=== PATIENT | female | born 1955 | race Caucasian/White ===

== ENCOUNTER 2017-12-02 15:03 | Emergency (ER) | payer OTHER ==
[~2017-12-02] VITALS: Ht 167.6 cm; Wt 66.6 kg
[2017-12-02 15:19] VITALS: BP 193/91; PULSE 102; RESP 16; TEMP 98.5; O2SAT 99
[2017-12-02 15:52] VITALS: BP 191/97; PULSE 99; RESP 18; O2SAT 97
[2017-12-02] MEDS ORDERED: SIMV20TA PO (16:01)
[2017-12-02] MEDS ORDERED: LEVO125T4 PO (16:01)
[2017-12-02] MEDS ORDERED: ASPI81TA23 PO (16:01)
[2017-12-02] MEDS ORDERED: LISI20TA PO (16:01)
[2017-12-02] MEDS ORDERED: LORA2TAB7 PO (16:01)
--- NOTE | 2017-12-02 16:08 | PD ---
HPI Chief Complaint: Cardiac Complaint Time Seen by Provider: 16:07 Travel History International Travel<30 days: No Contact w/Intl Traveler<30days: No Traveled to known affect area: No History of Present Illness HPI 61-year-old female came to the emergency room with history of paroxysmal palpitations for past 2-3 days. Patient says that her heart start to race and she almost feels like she is having a panic attack. Currently she says it has gone and she feels okay but the last episode was just prior to coming to the emergency room. Patient is a smoker. Also denies nicotine lozenges in an attempt to quit smoking. She has hypothyroidism and is taking Synthroid. Her last thyroid level was checked a month ago and she said everything was fine. No history of chest pain. Vital signs were stable. Patient says her blood pressure was very high at home as well. [facility]LY [facility] Past Medical History Narrative Medical List of her past medical, surgical, social and family history reviewed from the nursing note. Anxiety: Yes High Cholesterol: Yes Diminished Hearing: No Hypertension: Yes Immunizations Current: Yes Thyroid Disease: Yes Tetanus Vaccination: < 5 Years Influenza Vaccination: No ?: Not Menopausal: Yes Past Surgical History Hysterectomy: Yes Other Surgery: Yes (RT ARM BREAST CYST) Social History Alcohol Use: No Tobacco Use: No Substance Use: Yes (POT) Allergies-Medications (Allergen,Severity, Reaction): Coded Allergies: morphine (Verified Allergy, Severe, HIVES/RASH, 12/02/17) Comments List of her allergies reviewed from the nursing note. Reported Meds & Prescriptions Reported Meds & Active Scripts Active Methimazole 5 Mg Tab 5 Mg PO TID Reported Lorazepam 2 Mg Tab 2 Mg PO DIRECTED PRN Aspirin EC (Aspirin) 81 Mg Tabdr 81 Mg PO DAILY Levothyroxine (Levothyroxine Sodium) 125 Mcg Tab 125 Mcg PO DAILY Lisinopril-Hctz 20-12.5 Mg Tab 1 Tab PO DAILY Simvastatin 20 Mg Tab 20 Mg PO DAILY Narrative Medication List of home medications reviewed from the nursing note. Review of Systems Except as stated in HPI: all other systems reviewed are Neg Cardiovascular: Positive: Palpitations Physical Exam Narrative GENERAL: Awake, alert, anxious, no obvious distress SKIN: Focused skin assessment warm/dry. HEAD: Atraumatic. Normocephalic. EYES: Pupils equal and round. No scleral icterus. No injection or drainage. ENT: No nasal bleeding or discharge. Mucous membranes pink and moist. NECK: Trachea midline. No JVD. CARDIOVASCULAR: Regular rate and rhythm. No murmur appreciated. RESPIRATORY: No accessory muscle use. Clear to auscultation. Breath sounds equal bilaterally. GASTROINTESTINAL: Abdomen soft, non-tender, nondistended. Hepatic and splenic margins not palpable. MUSCULOSKELETAL: No obvious deformities. No clubbing. No cyanosis. No edema. NEUROLOGICAL: Awake and alert. No obvious cranial nerve deficits. Motor grossly within normal limits. Normal speech. PSYCHIATRIC: Appropriate mood and affect; insight and judgment normal. Data Data Last Documented VS Vital Signs Date Time Temp Pulse Resp B/P (MAP) Pulse Ox O2 Delivery O2 Flow Rate FiO2 12/02/17 18:01 12/02/17 17:26 92 18 96 Room Air 12/02/17 15:19 98.5 Orders Orders Electrocardiogram (12/02/17 16:13) Basic Metabolic Panel (Bmp) (12/02/17 16:13) Complete Blood Count With Diff (12/02/17 16:13) Magnesium (Mg) (12/02/17 16:13) Prothrombin Time / Inr (Pt) (12/02/17 16:13) Troponin I (12/02/17 16:13) Chest, Single Ap (12/02/17 16:13) Ecg Monitoring (12/02/17 16:13) Bilateral Bp Monitoring (12/02/17 16:13) Iv Access Insert/Monitor (12/02/17 16:13) Oximetry (12/02/17 16:13) Oxygen Administration (12/02/17 16:13) Sodium Chloride 0.9% Flush (Ns Flush) (12/02/17 16:15) Sodium Chlorid 0.9% 500 Ml Inj (Ns 500 M (12/02/17 16:15) Thyroid Stimulating Hormone (12/02/17 16:13) Propranolol (Inderal) (12/02/17 17:15) Methimazole (Tapazole) (12/02/17 17:15) Methimazole (Tapazole) (12/02/17 17:30) Free T3 (12/02/17 17:20) Free Thyroxine (T4) (12/02/17 17:20) Ed Discharge Order (12/02/17 17:32) Labs Laboratory Tests Test 12/02/17 16:20 White Blood Count 6.8 TH/MM3 Red Blood Count 5.42 MIL/MM3 Hemoglobin 15.6 GM/DL Hematocrit 47.8 % Mean Corpuscular Volume 88.2 FL Mean Corpuscular Hemoglobin 28.7 PG Mean Corpuscular Hemoglobin Concent 32.6 % Red Cell Distribution Width 12.0 % Platelet Count 217 TH/MM3 Mean Platelet Volume 7.0 FL Neutrophils (%) (Auto) 60.5 % Lymphocytes (%) (Auto) 27.1 % Monocytes (%) (Auto) 9.6 % Eosinophils (%) (Auto) 2.3 % Basophils (%) (Auto) 0.5 % Neutrophils # (Auto) 4.1 TH/MM3 Lymphocytes # (Auto) 1.8 TH/MM3 Monocytes # (Auto) 0.7 TH/MM3 Eosinophils # (Auto) 0.2 TH/MM3 Basophils # (Auto) 0.0 TH/MM3 CBC Comment DIFF FINAL Differential Comment Prothrombin Time 10.6 SEC Prothromb Time International Ratio 1.0 RATIO Blood Urea Nitrogen 15 MG/DL Creatinine 0.72 MG/DL Random Glucose 150 MG/DL Calcium Level 9.4 MG/DL Magnesium Level 2.3 MG/DL Sodium Level 138 MEQ/L Potassium Level 3.6 MEQ/L Chloride Level 106 MEQ/L Carbon Dioxide Level 24.4 MEQ/L Anion Gap 8 MEQ/L Estimat Glomerular Filtration Rate 82 ML/MIN Troponin I LESS THAN 0.02 NG/ML Free Thyroxine 1.24 NG/DL Free Triiodothyronine (T3) pg/dL 2.43 PG/ML Thyroid Stimulating Hormone 3rd Gen 0.149 uIU/ML MDM Medical Decision Making Medical Screen Exam Complete: Yes Emergency Medical Condition: Yes Medical Record Reviewed: Yes Interpretation(s) Twelve-lead EKG was reviewed by me. Normal sinus rhythm, left axis deviation, nonspecific ST-T wave changes. Heart rate of 79 bpm. Differential Diagnosis Electrolyte abnormality, hyperthyroidism, ACS Narrative Course 5:35 PM blood test results are back and her TSH is abnormally low. This would explain her palpitations given the fact that she is hyperthyroid. I've given her dose of methimazole and propranolol. She'll go home with a prescription for methimazole and instructions. Procedures EKG Prior to Arrival: No Diagnosis Primary Impression: Palpitations Additional Impression: Hyperthyroidism Referrals: Primary Care Physician 3 days Additional Instructions: Please return to the ER if condition worsens or any other new concerns. Otherwise follow up with her primary care in next 3-4 days. A repeat blood test for thyroid patient be done within a week. Stop taking Synthroid. He will need to adjust the dose of the medication based on the repeat blood test result. Your primary care needs to order an ultrasound of your thyroid gland as well. Med/Other Pt SpecificInfo: Prescription(s) given, Med Stopped (Levithyroxine ) Scripts Methimazole (Methimazole) 5 Mg Tab 5 MG PO TID for Thyroid, #15 TAB 0 Refills Prov: Elsie Garcia MD 12/02/17 Disposition: 01 DISCHARGE HOME Condition: Stable Elsie Garcia MD Dec 02, 2017 16:08
[2017-12-02] MEDS ORDERED: SODIUM CHLORID 0.9% 500 ML INJ 500 ML IV ONE (16:15)
[2017-12-02] MEDS ORDERED: SODIUM CHLORIDE 0.9% FLUSH 10 ML FLUSH IVF PRN (16:15)
--- NOTE | 2017-12-02 16:42 | RADRPT ---
EXAM DATE/TIME: 12/02/2017 16:30 [place] COMPARISON: No previous studies available for comparison. INDICATIONS : Chest discomfort and headache. MEDICAL HISTORY : Hypertension. SURGICAL HISTORY : None. ENCOUNTER: Initial ACUITY: 3 days PAIN SCORE: 2/10 LOCATION: Bilateral chest FINDINGS: A single view of the chest demonstrates the lungs to be symmetrically aerated without evidence of mas s, infiltrate or effusion. The cardiomediastinal contours are unremarkable. Osseous structures are intact. CONCLUSION: No acute disease. Compa Andino MD FACR on December 02, 2017 at 16:40 Board Certified Radiologist. This report was verified electronically.
[2017-12-02 16:44] LABS: CHLORIDE 106 MEQ/L (98-107); SODIUM (NA) 138 MEQ/L (136-145)
[2017-12-02 16:46] VITALS: RESP 16; O2SAT 97
[2017-12-02 16:47] VITALS: BP_SYST 139; BP_SYST 144; BP_DIAS 68; BP_DIAS 71
[2017-12-02 16:47] LABS: BICARBONATE 24.4 MEQ/L (21.0-32.0); CALCIUM 9.4 MG/DL (8.5-10.1); GLUCOSE,RANDOM 150 MG/DL (74-106); MAGNESIUM 2.3 MG/DL (1.5-2.5)
[2017-12-02 16:48] LABS: BLOOD UREA NITROGEN 15 MG/DL (7-18); PROTHROMBIN TIME - PATIENT 10.6 SEC (9.8-11.6)
[2017-12-02 16:51] LABS: CREATININE 0.72 MG/DL (0.50-1.00); GLOMERULAR FILTRATION RATE 82 ML/MIN (>89)
[2017-12-02 16:55] LABS: AUTOMATED NEUTROPHIL # 4.1 TH/MM3 (1.8-7.7); BASOPHIL % 0.5 % (0.0-2.0); EOSINOPHIL # 0.2 TH/MM3 (0-0.4); EOSINOPHIL % 2.3 % (0.0-4.0); HEMATOCRIT 47.8 % (35.0-46.0); HEMOGLOBIN 15.6 GM/DL (11.6-15.3); LYMPH % 27.1 % (9.0-44.0); LYMPHOCYTE # 1.8 TH/MM3 (1.0-4.8); MEAN CELL VOLUME 88.2 FL (80.0-100.0); MEAN CORPUSCULAR HEMOGLOBIN 28.7 PG (27.0-34.0); MEAN CORPUSCULAR HGB CONC 32.6 % (32.0-36.0); MONO % 9.6 % (0.0-8.0); MONOCYTE # 0.7 TH/MM3 (0-0.9); NEUT % 60.5 % (16.0-70.0); PLATELET COUNT 217 TH/MM3 (150-450); RED BLOOD COUNT 5.42 MIL/MM3 (4.00-5.30); WHITE BLOOD COUNT 6.8 TH/MM3 (4.0-11.0)
[2017-12-02 16:56] LABS: TROPONIN I LESS THAN 0.02 NG/ML (0.02-0.05)
[2017-12-02] MEDS ORDERED: METHIMAZOLE 10 MG TAB PO ONE (17:15)
[2017-12-02] MEDS ORDERED: PROPRANOLOL HCL 20 MG TAB PO ONE (17:15)
[2017-12-02] MEDS ORDERED: METH5TAB4 PO (17:16)
[2017-12-02 17:26] VITALS: BP 139/68; PULSE 92; RESP 18; O2SAT 96
[2017-12-02] MEDS ORDERED: METHIMAZOLE 5 MG TAB PO ONE (17:30)
[2017-12-02 20:40] LABS: FREE T3 2.43 PG/ML (2.18-3.98); FREE T4 1.24 NG/DL (0.76-1.46)
--- NOTE | 2017-12-03 13:47 | EKG ---
Date Performed: 12/02/2017 Time Performed: 16:18:18 PTAGE: 61 years EKG: Sinus rhythm BORDERLINE LEFT AXIS DEVIATION BORDERLINE ECG NO PREVIOUS TRACING DOCTOR: Jevon Horner Interpretating Date/Time 12/03/2017 13:43:53
== END 2017-12-02 18:02 | disposition home or self-care (01) ==
LOC: PHED 15:03
DX: R00.2 Palpitations (principal); E05.90 Thyrotoxicosis, unspecified without thyrotoxic crisis or storm; I10 Essential (primary) hypertension; E78.00 Pure hypercholesterolemia, unspecified; E03.9 Hypothyroidism, unspecified; F41.9 Anxiety disorder, unspecified; R94.31 Abnormal electrocardiogram [ECG] [EKG]; F17.200 Nicotine dependence, unspecified, uncomplicated; Z88.5 Allergy status to narcotic agent; Z79.82 Long term (current) use of aspirin; Z79.899 Other long term (current) drug therapy
CPT/HCPCS: 71045; 80048; 83735; 84439; 84443; 84481; 84484; 85025; 85610; 93005; 96360; 99285; J7040

== ENCOUNTER 2018-04-03 08:08 | Inpatient (IN) | payer OTHER ==
[2018-04-03] VITALS (11 sets, daily range): BP systolic 102–152; BP diastolic 66–82; PULSE 63–128; RESP 16–18; TEMP 98–98.5; O2SAT 95–98
[~2018-04-03] VITALS: Ht 167.6 cm; Wt 69.7 kg
[~2018-04-03 08:08] MED LIST: ASPI81TA23 PO; LEVO125T4 PO; LISI20TA PO; LORA2TAB7 PO; METH5TAB4 PO; SIMV20TA PO
[2018-04-03] MEDS ORDERED: VITA2000 PO (08:30)
[2018-04-03] MEDS ORDERED: MULTTAB67 PO (08:30)
[2018-04-03] MEDS ORDERED: LEVO112T2 PO (08:30)
--- NOTE | 2018-04-03 08:47 | PD ---
HPI Chief Complaint: General Weakness Time Seen by Provider: 08:36 Travel History International Travel<30 days: No Contact w/Intl Traveler<30days: No Traveled to known affect area: No History of Present Illness HPI This 62-year-old female is complaining of not feeling well. She says she has not felt well for several months. She was here in November. She has a history of hypothyroidism and had been on thyroid replacement for many years. When she was here in November she was found to have a low TSH. She was told to stop her Synthroid and was started on methimazole. She says she has not had any energy. She has been feeling tired. She denies chest pain or shortness of breath. She does have a very strong family history of heart disease. Both her mother and sister have of heart disease. She stopped smoking in November [facility] Past Medical History Anxiety: Yes High Cholesterol: Yes Diminished Hearing: No Hypertension: Yes Immunizations Current: Yes Thyroid Disease: Yes (HYPO) Influenza Vaccination: No Menopausal: Yes Past Surgical History Hysterectomy: Yes Other Surgery: Yes (RT ARM BREAST CYST) Social History Alcohol Use: No Tobacco Use: No Substance Use: Yes (POT) Allergies-Medications (Allergen,Severity, Reaction): Coded Allergies: morphine (Verified Allergy, Severe, HIVES/RASH, 04/03/18) Reported Meds & Prescriptions Reported Meds & Active Scripts Active Reported Vitamin D3 (Cholecalciferol) 2,000 Unit Cap 2,000 Units PO DAILY Multiple Vitamin 1 Tab 1 Tab PO DAILY Levothyroxine (Levothyroxine Sodium) 112 Mcg Tab 112 Mcg PO DAILY Lorazepam 2 Mg Tab 2 Mg PO DIRECTED PRN Aspirin EC (Aspirin) 81 Mg Tabdr 81 Mg PO DAILY Lisinopril-Hctz 20-12.5 Mg Tab 1 Tab PO DAILY Simvastatin 20 Mg Tab 20 Mg PO DAILY Review of Systems General / Constitutional: No: Fever, Chills HENT: Positive: Lightheadedness, No: Headaches Cardiovascular: Positive: Palpitations, No: Chest Pain or Discomfort Respiratory: No: Cough, Shortness of Breath Gastrointestinal: No: Vomiting, Diarrhea Genitourinary: No: Urgency, Frequency Musculoskeletal: No: Myalgias, Arthralgias Skin: No Rash, No Itching Neurologic: Positive: Weakness, No: Syncope Psychiatric: No: Anxiety, Depression Endocrine: No: Heat Intolerance, Cold Intolerance Hematologic/Lymphatic: No: Easy Bruising Physical Exam Narrative GENERAL: Well-developed female SKIN: Focused skin assessment warm/dry. HEAD: Atraumatic. Normocephalic. EYES: Pupils equal and round. No scleral icterus. No injection or drainage. ENT: No nasal bleeding or discharge. Mucous membranes pink and moist. NECK: Trachea midline. No JVD. Thyroid is not palpable CARDIOVASCULAR: Regular rate and rhythm. No murmur appreciated. RESPIRATORY: No accessory muscle use. Clear to auscultation. Breath sounds equal bilaterally. GASTROINTESTINAL: Abdomen soft, non-tender, nondistended. Hepatic and splenic margins not palpable. MUSCULOSKELETAL: No obvious deformities. No clubbing. No cyanosis. No edema. NEUROLOGICAL: Awake and alert. No obvious cranial nerve deficits. Motor grossly within normal limits. Normal speech. PSYCHIATRIC: Appropriate mood and affect; insight and judgment normal. Data Data Last Documented VS Vital Signs Date Time Temp Pulse Resp B/P (MAP) Pulse Ox O2 Delivery O2 Flow Rate FiO2 04/03/18 10:30 82 16 119/66 (83) 98 Room Air 04/03/18 08:16 98.4 Orders Orders Electrocardiogram (04/03/18 08:45) Complete Blood Count With Diff (04/03/18 08:45) Comprehensive Metabolic Panel (04/03/18 08:45) Thyroid Stimulating Hormone (04/03/18 08:45) Urinalysis - C+S If Indicated (04/03/18 08:51) Creatine Kinase (Cpk) (04/03/18 09:17) Ckmb (Isoenzyme) Profile (04/03/18 09:17) Troponin I (04/03/18 09:17) B-Type Natriuretic Peptide (04/03/18 09:17) Magnesium (Mg) (04/03/18 09:17) Chest, Single Ap (04/03/18 09:17) CKMB (04/03/18 09:35) CKMB% (04/03/18 09:35) Heparin Inj (Heparin Inj) (04/03/18 11:15) Heparin Inj (Heparin Inj) (04/03/18 17:15) Heparin Inj (Heparin Inj) (04/03/18 17:15) Heparin-D5w 25,000 U/250 Ml (Heparin-D5w (04/03/18 11:15) Act Partial Throm Time (Ptt) (04/03/18 11:02) Prothrombin Time / Inr (Pt) (04/03/18 11:02) Cbc No Diff, Includes Plts (04/03/18 11:02) Cbc No Diff, Includes Plts (04/06/18 06:00) Act Partial Throm Time (Ptt) (04/03/18 18:02) Occult Blood (Hemoccult) Stool (04/03/18 11:02) Labs Laboratory Tests Test 04/03/18 08:50 04/03/18 08:55 04/03/18 09:35 Urine Collection Type VOIDED Urine Color YELLOW Urine Turbidity CLEAR Urine pH 5.0 Urine Specific [place] 1.025 Urine Protein TRACE mg/dL Urine Glucose (UA) NEG mg/dL Urine Ketones NEG mg/dL Urine Occult Blood LARGE Urine Nitrite NEG Urine Bilirubin NEG Urine Urobilinogen 0.2 MG/DL Urine Leukocyte Esterase NEG Urine RBC 4-9 /hpf Urine WBC 0-2 /hpf Urine Squamous Epithelial Cells 0-3 /hpf Urine Mucus MANY /lpf Microscopic Urinalysis Comment CULT NOT INDICATED White Blood Count 7.0 TH/MM3 Red Blood Count 4.38 MIL/MM3 Hemoglobin 13.5 GM/DL Hematocrit 40.1 % Mean Corpuscular Volume 91.5 FL Mean Corpuscular Hemoglobin 30.8 PG Mean Corpuscular Hemoglobin Concent 33.7 % Red Cell Distribution Width 13.5 % Platelet Count 229 TH/MM3 Mean Platelet Volume 5.9 FL Neutrophils (%) (Auto) 68.9 % Lymphocytes (%) (Auto) 22.2 % Monocytes (%) (Auto) 7.1 % Eosinophils (%) (Auto) 0.7 % Basophils (%) (Auto) 1.1 % Neutrophils # (Auto) 4.9 TH/MM3 Lymphocytes # (Auto) 1.5 TH/MM3 Monocytes # (Auto) 0.5 TH/MM3 Eosinophils # (Auto) 0.0 TH/MM3 Basophils # (Auto) 0.1 TH/MM3 CBC Comment DIFF FINAL Differential Comment Blood Urea Nitrogen 18 MG/DL Creatinine 1.00 MG/DL Random Glucose 128 MG/DL Total Protein 8.3 GM/DL Albumin 4.4 GM/DL Calcium Level 9.5 MG/DL Alkaline Phosphatase 67 U/L Aspartate Amino Transf (AST/SGOT) 34 U/L Alanine Aminotransferase (ALT/SGPT) 44 U/L Total Bilirubin 0.5 MG/DL Sodium Level 140 MEQ/L Potassium Level 3.6 MEQ/L Chloride Level 106 MEQ/L Carbon Dioxide Level 25.0 MEQ/L Anion Gap 9 MEQ/L Estimat Glomerular Filtration Rate 56 ML/MIN Thyroid Stimulating Hormone 3rd Gen 6.960 uIU/ML Magnesium Level 2.3 MG/DL Total Creatine Kinase 252 U/L Creatine Kinase MB 7.8 NG/ML Creatine Kinase MB % 3.1 % Troponin I 0.06 NG/ML B-Type Natriuretic Peptide 239 PG/ML MDM Medical Decision Making Medical Screen Exam Complete: Yes Emergency Medical Condition: Yes Medical Record Reviewed: Yes Differential Diagnosis Differential includes hyperthyroidism, hypothyroidism, electrolyte imbalance Narrative Course EKG shows a sinus rhythm with deeply inverted T waves across the precordium. The T waves are inverted in all leads except for R in V1. Her troponin is elevated at 0.06. There is not any chest pain but the troponin and EKG findings are suspicious for ischemia. I have discussed the case with Dr. Ledbetter who asked that we initiate heparin and transfer the patient to the main hospital Diagnosis Primary Impression: Myocardial ischemia Admitting Information Admitting Physician Requests: Admit Jacky Olmedo MD April 03, 2018 08:47
[2018-04-03 09:07] LABS: AUTOMATED NEUTROPHIL # 4.9 TH/MM3 (1.8-7.7); BASOPHIL # 0.1 TH/MM3 (0-0.2); BASOPHIL % 1.1 % (0.0-2.0); EOSINOPHIL % 0.7 % (0.0-4.0); HEMATOCRIT 40.1 % (35.0-46.0); HEMOGLOBIN 13.5 GM/DL (11.6-15.3); LYMPH % 22.2 % (9.0-44.0); LYMPHOCYTE # 1.5 TH/MM3 (1.0-4.8); MEAN CELL VOLUME 91.5 FL (80.0-100.0); MEAN CORPUSCULAR HEMOGLOBIN 30.8 PG (27.0-34.0); MEAN CORPUSCULAR HGB CONC 33.7 % (32.0-36.0); MEAN PLATELET VOLUME 5.9 FL (7.0-11.0); MONO % 7.1 % (0.0-8.0); MONOCYTE # 0.5 TH/MM3 (0-0.9); NEUT % 68.9 % (16.0-70.0); PLATELET COUNT 229 TH/MM3 (150-450); RED BLOOD COUNT 4.38 MIL/MM3 (4.00-5.30); RED CELL DISTRIBUTION WIDTH 13.5 % (11.6-17.2)
[2018-04-03 09:08] LABS: BILIRUBIN, URINE NEG (NEG); BLOOD, URINE LARGE (NEG); GLUCOSE,URINE NEG (NEG); KETONE, URINE NEG (NEG); NITRITE,URINE NEG (NEG); URINE COLOR YELLOW (YELLW/STRAW); URINE LEUKOCYTE ESTERASE NEG (NEG)
--- NOTE | 2018-04-03 09:44 | RADRPT ---
EXAM DATE: 04/03/2018 9:41 AM EDT AGE/SEX: 62 years / Female INDICATIONS: Palpitations. CLINICAL DATA: This is the patient's initial encounter. Patient reports that signs and symptoms have been present for 1 day and indicates a pain score of 0/10. MEDICAL/SURGICAL HISTORY: Hypertension. None. COMPARISON: [facility], CHEST SINGLE AP, 12/02/2017. . FINDINGS: A single AP view of the chest demonstrates the lungs to be symmetrically aerated without evidence of mass, infiltrate or effusion. The cardiomediastinal contours are unremarkable. Osseous structures a re intact. CONCLUSION: No acute cardiopulmonary disease Electronically signed by: Maulik Witt MD 04/03/2018 9:43 AM EDT
[2018-04-03 09:53] LABS: MUCUS URINE MANY /lpf (OCC)
[2018-04-03 09:54] LABS: WBC, URINE 0-2 /hpf (0-5)
[2018-04-03 09:55] LABS: SQUAMOUS EPITHELIAL CELL URINE 0-3 /hpf (0-5)
[2018-04-03 09:56] LABS: ALBUMIN 4.4 GM/DL (3.4-5.0); BLOOD UREA NITROGEN 18 MG/DL (7-18); GLUCOSE,RANDOM 128 MG/DL (74-106)
[2018-04-03 09:58] LABS: CALCIUM 9.5 MG/DL (8.5-10.1)
[2018-04-03 09:59] LABS: ALT (GPT) 44 U/L (10-53); AST (GOT) 34 U/L (15-37); GLOMERULAR FILTRATION RATE 56 ML/MIN (>89)
[2018-04-03 10:00] LABS: CHLORIDE 106 MEQ/L (98-107); SODIUM (NA) 140 MEQ/L (136-145); TOTAL BILIRUBIN ADULT 0.5 MG/DL (0.2-1.0)
[2018-04-03 10:01] LABS: TOTAL PROTEIN 8.3 GM/DL (6.4-8.2)
[2018-04-03 10:02] LABS: ALKALINE PHOSPHATASE 67 U/L (45-117)
[2018-04-03 10:18] LABS: MAGNESIUM 2.3 MG/DL (1.5-2.5)
[2018-04-03 10:26] LABS: TROPONIN I 0.06 NG/ML (0.02-0.05)
[2018-04-03] MEDS ORDERED: HEPARIN-D5W 25,000 U/250 ML 250 ML IV PRN (11:15)
[2018-04-03] MEDS ORDERED: HEPARIN SODIUM - IV 10,000 UNITS/10 ML VIAL IV ONE (11:15)
[2018-04-03] MEDS ORDERED: ACETAMINOPHEN 325 MG TAB PO PRN ×2 (11:15)
[2018-04-03] MEDS ORDERED: SODIUM CHLORIDE 0.9% FLUSH 10 ML FLUSH IV FLUSH PRN (11:15)
[2018-04-03] MEDS ORDERED: ONDANSETRON HCL 4 MG/2 ML VIAL IVP PRN (11:15)
[2018-04-03] MEDS ORDERED: NITROGLYCERIN 0.4 MG SL 25 TABS/BTL SL PRN (11:15)
[2018-04-03] MEDS ORDERED: NALOXONE HCL 0.4 MG/ML AMP IV PUSH PRN (11:15)
[2018-04-03] MEDS ORDERED: RESP: ALBUTEROL 2.5 MG/IPRATROPIUM 0.5 MG NEB (PRN) NEB (11:15)
[2018-04-03] MEDS ORDERED: MAGNESIUM HYDROXIDE SUSP 30 ML CUP PO PRN (11:15)
--- NOTE | 2018-04-03 11:16 | EKG ---
Date Performed: 04/03/2018 Time Performed: 09:12:45 PTAGE: 62 years EKG: Sinus rhythm WITH SINUS ARRHYTHMIA LEFT AXIS DEVIATION INCOMPLETE RIGHT BUNDLE BRANCH BLOCK ST/T-WAVE ABNORMALITY , CONSIDER ANTEROLATERAL AND INFERIOR ISCHEMIA ABNORMAL ECG PREVIOUS TRACING : 12/02/2017 16.18 Compared to previous tracing, current abnormal EKG has repl aced normal EKG. DOCTOR: Evelio Villasenor Interpretating Date/Time 04/03/2018 11:14:38
[2018-04-03 11:26] LABS: INTERNATIONAL NORMALIZED RATIO 1.1 RATIO; PROTHROMBIN TIME - PATIENT 10.8 SEC (9.8-11.6)
--- NOTE | 2018-04-03 11:38 | HHI.HP ---
[facility] Nader Barillas MD Admission Diagnosis MYOCARDIAL ISCHEMIA Diagnoses: (1) Myocardial ischemia Diagnosis: Principal Chief Complaint: Fatigue Travel History International Travel<30 Days: No Contact w/Intl Traveler <30 Da: No Traveled to Known Affected Are: No History of Present Illness Written by Srikanth Trevizo, acting as scribe for Dr. Wang on 04/03/18 at 11: 38. 62-year-old female with known history of hypertension, hyperlipidemia, hypothyroidism, anxiety who presented to hospital because a few day history of lethargy, nausea, palpitations. Patient states that she normal state of health until approximately 3 days ago when she just started feeling very fatigued, had no energy. She related to her hypothyroidism. States that over the last few months she has been undergoing management for hypothyroidism and told that she had hyperthyroidism and her primary doctor said that she now again has hypothyroidism. However she has been experiencing some nausea over the last 3 days as well as palpitations. Patient decided come to the emergency department for evaluation. Upon workup patient was found to have significantly abnormal EKGs showing myocardial ischemia as well as mildly elevated cardiac enzymes. ER physician did contact cocoa bean roaster who recommended admission to [facility] for further evaluation and management. Presently the patient is sitting eating fine. She denies any chest pain, vomiting, shortness of breath, dyspnea, lightheadedness, dizziness. Review of Systems Constitutional: COMPLAINS OF: Fatigue Cardiovascular: COMPLAINS OF: Palpitations Except as stated in HPI: all other systems reviewed are Neg Past Family Social History Past Medical History Hypertension Hyperlipidemia Hypothyroidism Anxiety Past Surgical History Hysterectomy Multiple bilateral breast biopsies and cyst removals Right forearm surgery from arm going through plate glass window Reported Medications Reported Meds & Active Scripts Active Reported Vitamin D3 (Cholecalciferol) 2,000 Unit Cap 2,000 Units PO DAILY Multiple Vitamin 1 Tab 1 Tab PO DAILY Levothyroxine (Levothyroxine Sodium) 112 Mcg Tab 112 Mcg PO DAILY Lorazepam 2 Mg Tab 2 Mg PO DIRECTED PRN Aspirin EC (Aspirin) 81 Mg Tabdr 81 Mg PO DAILY Lisinopril-Hctz 20-12.5 Mg Tab 1 Tab PO DAILY Simvastatin 20 Mg Tab 20 Mg PO DAILY Allergies: Coded Allergies: morphine (Verified Allergy, Severe, HIVES/RASH, 04/03/18) Family History Family history reviewed and significant for heart disease. Mother at age 63 from myocardial infarction, she had her first bypass at age 50. Sister had her heart attack at age 52. Father at age 88 from colon cancer Social History Patient quit smoking in November, prior to that she smoked 1 pack of cigarettes a day since she was 16 years old. Denies any alcohol or illicit drugs Physical Exam Vital Signs Vital Signs Date Time Temp Pulse Resp B/P (MAP) Pulse Ox O2 Delivery O2 Flow Rate FiO2 04/03/18 10:30 82 16 119/66 (83) 98 Room Air 04/03/18 08:16 98.4 128 16 152/73 (99) 98 Physical Exam GENERAL: Well-developed, well-nourished, in no acute distress. alert and orientated HEENT: Head is normocephalic without any lesions or masses noted. Facial features are symmetric. Eyes: Pupils equal round reactive to light. Extraocular muscles are intact. Conjunctivae were clear. Oropharyngeal: Pharynx without any erythema edema. Tongue is midline without deviation. Buccal mucosa is moist without any masses or lesions NECK: Supple without any masses. Trachea midline no deviation. No JVD, no bruits are appreciated CARDIAC: Regular rhythm, regular rate. S1/S2 are heard. No murmurs gallops or rubs. LUNGS: Clear to auscultation bilaterally. No wheeze, rhonchi or rales. No use of accessory muscles on inspiration or expiration. ABDOMEN: Soft, nontender. Nondistended. Bowel sounds heard in all 4 quadrants. No organomegaly or masses. Negative rebound, negative guarding EXTREMITIES: No edema, pulses are equal bilaterally. No cyanosis or clubbing NEUROLOGY: Mood and affect appear appropriate. Cranial nerves II through XII grossly intact. Muscle strength 5/5 in upper and lower extremities bilaterally. Deep tendon reflexes are 2+ in upper and lower extremities bilaterally. Laboratory Laboratory Tests Test 04/03/18 08:50 04/03/18 08:55 04/03/18 09:35 Urine Collection Type VOIDED Urine Color YELLOW Urine Turbidity CLEAR Urine pH 5.0 Urine Specific [employer] 1.025 Urine Protein TRACE Urine Glucose (UA) NEG Urine Ketones NEG Urine Occult Blood LARGE Urine Nitrite NEG Urine Bilirubin NEG Urine Urobilinogen 0.2 Urine Leukocyte Esterase NEG Urine RBC 4-9 Urine WBC 0-2 Urine Squamous Epithelial Cells 0-3 Urine Mucus MANY Microscopic Urinalysis Comment CULT NOT INDICATED White Blood Count 7.0 Red Blood Count 4.38 Hemoglobin 13.5 Hematocrit 40.1 Mean Corpuscular Volume 91.5 Mean Corpuscular Hemoglobin 30.8 Mean Corpuscular Hemoglobin Concent 33.7 Red Cell Distribution Width 13.5 Platelet Count 229 Mean Platelet Volume 5.9 Neutrophils (%) (Auto) 68.9 Lymphocytes (%) (Auto) 22.2 Monocytes (%) (Auto) 7.1 Eosinophils (%) (Auto) 0.7 Basophils (%) (Auto) 1.1 Neutrophils # (Auto) 4.9 Lymphocytes # (Auto) 1.5 Monocytes # (Auto) 0.5 Eosinophils # (Auto) 0.0 Basophils # (Auto) 0.1 CBC Comment DIFF FINAL Differential Comment Prothrombin Time 10.8 Prothromb Time International Ratio 1.1 Activated Partial Thromboplast Time 25.1 Blood Urea Nitrogen 18 Creatinine 1.00 Random Glucose 128 Total Protein 8.3 Albumin 4.4 Calcium Level 9.5 Alkaline Phosphatase 67 Aspartate Amino Transf (AST/SGOT) 34 Alanine Aminotransferase (ALT/SGPT) 44 Total Bilirubin 0.5 Sodium Level 140 Potassium Level 3.6 Chloride Level 106 Carbon Dioxide Level 25.0 Anion Gap 9 Estimat Glomerular Filtration Rate 56 Thyroid Stimulating Hormone 3rd Gen 6.960 Magnesium Level 2.3 Total Creatine Kinase 252 Creatine Kinase MB 7.8 Creatine Kinase MB % 3.1 Troponin I 0.06 B-Type Natriuretic Peptide 239 Result Diagram: 04/03/18 0855 04/03/18 0855 Imaging Last Impressions Chest X-Ray 04/03/18 0917 Signed Impressions: CONCLUSION: No acute cardiopulmonary disease Caprini VTE Risk Assessment Caprini VTE Risk Assessment: Mod/High Risk (score >= 2) Caprini Risk Assessment Model Point Value = 1 Point Value = 2 Point Value = 3 Point Value = 5 Age 41-60 Minor surgery BMI > 25 kg/m2 Swollen legs Varicose veins or History of unexplained or recurrent spontaneous Oral contraceptives or hormone replacement Sepsis (< 1 month) Serious lung disease, including pneumonia (< 1 month) Abnormal pulmonary function Acute myocardial infarction Congestive heart failure (< 1 month) History of inflammatory bowel disease Medical patient at bed rest Age 61-74 Arthroscopic surgery Major open surgery (> 45 min) Laparoscopic surgery (> 45 min) Malignancy Confined to bed (> 72 hours) Immobilizing plaster cast Central venous access Age >= 75 History of VTE Family history of VTE Factor V Leiden Prothrombin [id number] Lupus anticoagulant Anticardiolipin antibodies Elevated serum homocysteine Heparin-induced thrombocytopenia Other congenital or acquired thrombophilia Stroke (< 1 month) Elective arthroplasty Hip, pelvis, or leg fracture Acute spinal cord injury (< 1 month) Prophylaxis Regimen Total Risk Factor Score Risk Level Prophylaxis Regimen 0-1 Low Early ambulation 2 Moderate Order ONE of the following: *Sequential Compression Device (SCD) *Heparin 5000 units SQ BID 3-4 Higher Order ONE of the following medications: *Heparin 5000 units SQ TID *Enoxaparin/Lovenox 40 mg SQ daily (WT < 150 kg, CrCl > 30 mL/min) *Enoxaparin/Lovenox 30 mg SQ daily (WT < 150 kg, CrCl > 10-29 mL/min) *Enoxaparin/Lovenox 30 mg SQ BID (WT < 150 kg, CrCl > 30 mL/min) AND/OR *Sequential Compression Device (SCD) 5 or more Highest Order ONE of the following medications: *Heparin 5000 units SQ TID (Preferred with Epidurals) *Enoxaparin/Lovenox 40 mg SQ daily (WT < 150 kg, CrCl > 30 mL/min) *Enoxaparin/Lovenox 30 mg SQ daily (WT < 150 kg, CrCl > 10-29 mL/min) *Enoxaparin/Lovenox 30 mg SQ BID (WT < 150 kg, CrCl > 30 mL/min) AND *Sequential Compression Device (SCD) Assessment and Plan Problem List: (1) Myocardial ischemia ICD Code: I25.9 - Chronic ischemic heart disease, unspecified Status: Acute Assessment and Plan Myocardial ischemia -Patient with increased risk factors include age, postmenopausal without exogenous hormones, hypertension, hyperlipidemia -Initial cardiac enzymes were elevated with troponin 0 0.06, continue to trend cardiac enzyme -Initial EKG indicates incomplete right bundle branch block, ST/T-wave abnormalities consider anterolateral and inferior ischemia, continue serial EKGs -ER physician contacted cocoa bean roaster on-call who recommended patient be transferred to [facility] for evaluation and possible catheterization -Cardiology consultation -Patient will continue on aspirin, start low-dose Lopressor, Nitropaste, continue ROMULO inhibitor, continue statin -Patient will be anticoagulated on heparin IV Hypertension, hyperlipidemia -Home medications have been continued Hypothyroidism -Replacement therapy will be continued DVT prevention -Patient be anticoagulated with heparin IV This note was transcribed by jalil Trevizo. I, Dr. Maulik Wang personally performed the history, physical exam, and medical decision making; and confirmed the accuracy of the information in the transcribed note. Authenticated by Dr. Maulik Wang on 04/03/18 at 11:38. Code Status Full code Discussed Condition With Patient, , ED physician Physician Certification 2 Midnight Certification Type: Admission for Inpatient Services Order for Inpatient Services The services are ordered in accordance with Medicare regulations or non- Medicare payer requirements, as applicable. In the case of services not specified as inpatient-only, they are appropriately provided as inpatient services in accordance with the 2-midnight benchmark. Estimated LOS (days): 3 days is the estimated time the patient will need to remain in the hospital, assuming treatment plan goals are met and no additional complications. Post-Hospital Plan: Not yet determined Srikanth Trevizo April 03, 2018 11:38 Maulik Wang MD April 03, 2018 11:39
[2018-04-03] MEDS: METOPROLOL TARTRATE 25 MG TAB PO SCH ×2 (12:04→21:06)
[2018-04-03] MEDS: NITROGLYCERIN 2% OINT 1 GM PACKET TOPICAL SCH ×2 (12:05→18:00)
[2018-04-03 16:42] LABS: TROPONIN I 0.08 NG/ML (0.02-0.05)
[2018-04-03] MEDS ORDERED: HEPARIN SODIUM - IV 10,000 UNITS/10 ML VIAL IV PRN ×2 (17:15)
[2018-04-03] MEDS: SODIUM CHLORIDE 0.9% FLUSH 10 ML FLUSH IV FLUSH SCH (21:08)
[2018-04-03 22:29] LABS: TROPONIN I 0.06 NG/ML (0.02-0.05)
--- NOTE | 2018-04-03 23:30 | MB ---
cc: Anival Ledbetter MD DATE: 04/03/2018 HISTORY OF PRESENT ILLNESS: Veronica is a very pleasant 62-year-old lady who presents to the ER with chief complaint of severe weakness and fatigue. Otherwise, denies any fevers, chills, cough, GI or bleeding, PND, orthopnea, syncope, dizziness or chest pain. She has been having difficulty regulating her thyroid recently. PAST MEDICAL HISTORY: Per history of present illness. She has a history of anxiety, hypothyroidism, hypertension, hyperlipidemia, hysterectomy, right arm/breast cyst removal. SOCIAL HISTORY: She does smoke marijuana. Denies tobacco or alcohol use. ALLERGIES: MORPHINE. MEDICATIONS PRIOR TO ADMISSION: Vitamin D3, multivitamins, levothyroxine 112 mcg daily, lorazepam, aspirin 81 mg a day, lisinopril/hydrochlorothiazide 20/12.5 daily, simvastatin 20 mg daily. MEDICATIONS IN THE HOSPITAL: Aspirin 162 mg daily, pravastatin 40 mg daily, lisinopril 20 mg daily, levothyroxine 112 mcg daily, IV heparin, half-inch nitro paste q. 6 hours, metoprolol 12.5 q. 12 hours. PHYSICAL EXAMINATION: VITAL SIGNS: Temperature 98.5, pulse 81, respiratory rate 18, blood pressure 110/69. GENERAL: She is alert and oriented x 3, in no acute distress. NECK: Supple. No JVD. No bruit. CARDIOVASCULAR: S1, S2. No murmurs, rubs or gallops. LUNGS: Clear to auscultation bilaterally. ABDOMEN: Soft, nontender, nondistended, with positive bowel sounds. EXTREMITIES: No extremity edema. ELECTROCARDIOGRAM : Cannot be obtained in the computer to review the images. However, I did see the hard copy in her chart, which did show fairly symmetric, but slightly asymmetric deep T-wave inversions in the anterior and inferior leads, probably at least 8-10 mm deep maximally. LABORATORY DATA: White count 7.0, hemoglobin 13.5, hematocrit 40.1, platelet count 229. Sodium 140, potassium 3.6, chloride 106, bicarb 25.0, BUN 18, creatinine 1.0, glucose 128. AST 34, ALT 44. Troponin 0.06 and 0.08. BNP is 239. TSH 6.960. INR 1.1. IMAGING: Chest x-ray: No acute cardiopulmonary disease. SHE HAS THE FOLLOWING DIAGNOSES: 1. Jny-TP-cxeeegcie myocardial infarction. 2. Marijuana abuse. 3. Hypothyroidism. 4. Decompensated congestive heart failure. 5. Hyperglycemia. 6. Weakness and fatigue. DISCUSSION: At this point in time, I agree with aspirin, IV heparin, Lopressor, nitro and lisinopril. I recommended left heart catheterization to the patient, which we will schedule tomorrow, 04/04/2018. The patient is currently chest pain free. MD ROMIE Villagran/ROBERTO/prema , 07:49 PM , 08:53 PM
[2018-04-04] VITALS (28 sets, daily range): BP systolic 90–112; BP diastolic 54–76; PULSE 54–104; RESP 14–20; TEMP 98.1–98.5; O2SAT 97–100
[2018-04-04] MEDS: NITROGLYCERIN 2% OINT 1 GM PACKET TOPICAL SCH ×5 (00:28→23:49)
[2018-04-04 05:19] LABS: BASOPHIL # 0.1 TH/MM3 (0-0.2); BASOPHIL % 0.8 % (0.0-2.0); EOSINOPHIL # 0.1 TH/MM3 (0-0.4); EOSINOPHIL % 2.3 % (0.0-4.0); HEMATOCRIT 36.5 % (35.0-46.0); HEMOGLOBIN 12.8 GM/DL (11.6-15.3); LYMPH % 40.5 % (9.0-44.0); LYMPHOCYTE # 2.6 TH/MM3 (1.0-4.8); MEAN CELL VOLUME 89.7 FL (80.0-100.0); MEAN CORPUSCULAR HEMOGLOBIN 31.5 PG (27.0-34.0); MEAN CORPUSCULAR HGB CONC 35.2 % (32.0-36.0); MEAN PLATELET VOLUME 6.3 FL (7.0-11.0); MONO % 9.7 % (0.0-8.0); MONOCYTE # 0.6 TH/MM3 (0-0.9); NEUT % 46.7 % (16.0-70.0); PLATELET COUNT 197 TH/MM3 (150-450); RED BLOOD COUNT 4.07 MIL/MM3 (4.00-5.30); RED CELL DISTRIBUTION WIDTH 14.4 % (11.6-17.2); WHITE BLOOD COUNT 6.4 TH/MM3 (4.0-11.0)
[2018-04-04 05:44] LABS: ALBUMIN 3.9 GM/DL (3.4-5.0); ALT (GPT) 40 U/L (10-53); AST (GOT) 40 U/L (15-37); BICARBONATE 23.7 MEQ/L (21.0-32.0); BLOOD UREA NITROGEN 15 MG/DL (7-18); CALCIUM 8.9 MG/DL (8.5-10.1); CHLORIDE 106 MEQ/L (98-107); CHOLESTEROL 194 MG/DL (120-200); CREATININE 0.83 MG/DL (0.50-1.00); GLOMERULAR FILTRATION RATE 70 ML/MIN (>89); GLUCOSE,RANDOM 104 MG/DL (74-106); MAGNESIUM 2.3 MG/DL (1.5-2.5); SODIUM (NA) 139 MEQ/L (136-145); TRIGLYCERIDES 100 MG/DL (42-150)
[2018-04-04 05:46] LABS: ALKALINE PHOSPHATASE 60 U/L (45-117); CHOLESTEROL/ HDL RATIO 3.45 RATIO; HDL CHOLESTEROL 56.1 MG/DL (40.0-60.0); LDL CHOLESTEROL 118 MG/DL (0-99); TOTAL BILIRUBIN ADULT 0.5 MG/DL (0.2-1.0); TOTAL PROTEIN 7.5 GM/DL (6.4-8.2)
[2018-04-04] MEDS: LEVOTHYROXINE SODIUM 112 MCG TAB PO SCH (05:55)
[2018-04-04] MEDS ORDERED: LISINOPRIL 20 MG TAB PO SCH (09:00)
[2018-04-04] MEDS: SODIUM CHLORIDE 0.9% FLUSH 10 ML FLUSH IV FLUSH SCH ×2 (09:09→21:08)
[2018-04-04] MEDS: ASPIRIN 81 MG CHEW TAB PO SCH (09:10)
[2018-04-04] MEDS: PRAVASTATIN SOD 40 MG TAB PO SCH (09:10)
[2018-04-04] MEDS: METOPROLOL TARTRATE 25 MG TAB PO SCH ×2 (09:10→21:08)
--- NOTE | 2018-04-04 11:58 | HHI.PR ---
Subjective Remarks 62-year-old female with known history of hypertension, hyperlipidemia, hypothyroidism, anxiety who presented to hospital because a few day history of lethargy, nausea, palpitations. Patient states that she normal state of health until approximately 3 days ago when she just started feeling very fatigued, had no energy. She related to her hypothyroidism. States that over the last few months she has been undergoing management for hypothyroidism and told that she had hyperthyroidism and her primary doctor said that she now again has hypothyroidism. However she has been experiencing some nausea over the last 3 days as well as palpitations. Patient decided come to the emergency department for evaluation. Upon workup patient was found to have significantly abnormal EKGs showing myocardial ischemia as well as mildly elevated cardiac enzymes. ER physician did contact loader helper sorting yard who recommended admission to [facility] for further evaluation and management. Presently the patient is sitting eating fine. She denies any chest pain, vomiting, shortness of breath, dyspnea, lightheadedness, dizziness. 04-04 patient is hopefully scheduled to undergo cardiac catheterization later today Discussed with patient and RN and family Await cardiac input today A.m. labs Objective Vitals Vital Signs Date Time Temp Pulse Resp B/P (MAP) Pulse Ox O2 Delivery O2 Flow Rate FiO2 04/04/18 11:00 98.1 76 18 99/71 (80) 97 04/04/18 10:15 18 04/04/18 07:30 98.5 83 18 112/76 (88) 98 04/04/18 06:00 72 04/04/18 05:00 74 04/04/18 04:00 63 04/04/18 03:45 98.1 75 16 100/58 (72) 98 04/04/18 03:00 77 04/04/18 02:00 76 04/04/18 01:00 54 04/04/18 00:21 98.3 78 14 90/57 (68) 98 04/04/18 00:00 60 04/03/18 23:00 63 04/03/18 22:00 102 04/03/18 21:00 74 04/03/18 20:00 74 04/03/18 19:36 98.5 81 18 110/69 (83) 95 04/03/18 19:00 81 04/03/18 18:30 98.0 83 16 131/82 (98) 96 5/28/18 17:32 04/03/18 16:54 86 18 106/72 (83) 98 Room Air 04/03/18 14:12 78 16 102/67 (79) 98 Room Air I/O 04/03/18 04/03/18 04/03/18 04/04/18 04/04/18 04/04/18 07:00 15:00 23:00 07:00 15:00 23:00 Intake Total 250 ml 240 ml Balance 250 ml 240 ml Intake Oral 250 ml 240 ml # Voids 1 Result Diagram: 04/04/18 0458 04/04/18 0458 Other Results Laboratory Tests Test 04/03/18 08:50 04/03/18 08:55 04/03/18 09:35 04/03/18 16:05 Urine Collection Type VOIDED Urine Color YELLOW Urine Turbidity CLEAR Urine pH 5.0 Urine Specific [place] 1.025 Urine Protein TRACE mg/dL Urine Glucose (UA) NEG mg/dL Urine Ketones NEG mg/dL Urine Occult Blood LARGE Urine Nitrite NEG Urine Bilirubin NEG Urine Urobilinogen 0.2 MG/DL Urine Leukocyte Esterase NEG Urine RBC 4-9 /hpf Urine WBC 0-2 /hpf Urine Squamous Epithelial Cells 0-3 /hpf Urine Mucus MANY /lpf Microscopic Urinalysis Comment CULT NOT INDICATED White Blood Count 7.0 TH/MM3 Red Blood Count 4.38 MIL/MM3 Hemoglobin 13.5 GM/DL Hematocrit 40.1 % Mean Corpuscular Volume 91.5 FL Mean Corpuscular Hemoglobin 30.8 PG Mean Corpuscular Hemoglobin Concent 33.7 % Red Cell Distribution Width 13.5 % Platelet Count 229 TH/MM3 Mean Platelet Volume 5.9 FL Neutrophils (%) (Auto) 68.9 % Lymphocytes (%) (Auto) 22.2 % Monocytes (%) (Auto) 7.1 % Eosinophils (%) (Auto) 0.7 % Basophils (%) (Auto) 1.1 % Neutrophils # (Auto) 4.9 TH/MM3 Lymphocytes # (Auto) 1.5 TH/MM3 Monocytes # (Auto) 0.5 TH/MM3 Eosinophils # (Auto) 0.0 TH/MM3 Basophils # (Auto) 0.1 TH/MM3 CBC Comment DIFF FINAL Differential Comment Prothrombin Time 10.8 SEC Prothromb Time International Ratio 1.1 RATIO Activated Partial Thromboplast Time 25.1 SEC Blood Urea Nitrogen 18 MG/DL Creatinine 1.00 MG/DL Random Glucose 128 MG/DL Total Protein 8.3 GM/DL Albumin 4.4 GM/DL Calcium Level 9.5 MG/DL Alkaline Phosphatase 67 U/L Aspartate Amino Transf (AST/SGOT) 34 U/L Alanine Aminotransferase (ALT/SGPT) 44 U/L Total Bilirubin 0.5 MG/DL Sodium Level 140 MEQ/L Potassium Level 3.6 MEQ/L Chloride Level 106 MEQ/L Carbon Dioxide Level 25.0 MEQ/L Anion Gap 9 MEQ/L Estimat Glomerular Filtration Rate 56 ML/MIN Thyroid Stimulating Hormone 3rd Gen 6.960 uIU/ML Magnesium Level 2.3 MG/DL Total Creatine Kinase 252 U/L 253 U/L Creatine Kinase MB 7.8 NG/ML 8.2 NG/ML Creatine Kinase MB % 3.1 % 3.2 % Troponin I 0.06 NG/ML 0.08 NG/ML B-Type Natriuretic Peptide 239 PG/ML Test 04/03/18 21:45 04/04/18 04:58 Activated Partial Thromboplast Time 57.2 SEC 59.0 SEC Total Creatine Kinase 343 U/L Creatine Kinase MB 10.5 NG/ML Creatine Kinase MB % 3.1 % Troponin I 0.06 NG/ML White Blood Count 6.4 TH/MM3 Red Blood Count 4.07 MIL/MM3 Hemoglobin 12.8 GM/DL Hematocrit 36.5 % Mean Corpuscular Volume 89.7 FL Mean Corpuscular Hemoglobin 31.5 PG Mean Corpuscular Hemoglobin Concent 35.2 % Red Cell Distribution Width 14.4 % Platelet Count 197 TH/MM3 Mean Platelet Volume 6.3 FL Neutrophils (%) (Auto) 46.7 % Lymphocytes (%) (Auto) 40.5 % Monocytes (%) (Auto) 9.7 % Eosinophils (%) (Auto) 2.3 % Basophils (%) (Auto) 0.8 % Neutrophils # (Auto) 3.0 TH/MM3 Lymphocytes # (Auto) 2.6 TH/MM3 Monocytes # (Auto) 0.6 TH/MM3 Eosinophils # (Auto) 0.1 TH/MM3 Basophils # (Auto) 0.1 TH/MM3 CBC Comment DIFF FINAL Differential Comment Blood Urea Nitrogen 15 MG/DL Creatinine 0.83 MG/DL Random Glucose 104 MG/DL Total Protein 7.5 GM/DL Albumin 3.9 GM/DL Calcium Level 8.9 MG/DL Magnesium Level 2.3 MG/DL Alkaline Phosphatase 60 U/L Aspartate Amino Transf (AST/SGOT) 40 U/L Alanine Aminotransferase (ALT/SGPT) 40 U/L Total Bilirubin 0.5 MG/DL Sodium Level 139 MEQ/L Potassium Level 3.9 MEQ/L Chloride Level 106 MEQ/L Carbon Dioxide Level 23.7 MEQ/L Anion Gap 9 MEQ/L Estimat Glomerular Filtration Rate 70 ML/MIN B-Type Natriuretic Peptide 245 PG/ML Triglycerides Level 100 MG/DL Cholesterol Level 194 MG/DL LDL Cholesterol 118 MG/DL HDL Cholesterol 56.1 MG/DL Cholesterol/HDL Ratio 3.45 RATIO Imaging Last Impressions Chest X-Ray 04/03/18 09 Signed Impressions: CONCLUSION: No acute cardiopulmonary disease Objective Remarks GENERAL: Awake alert and oriented 3 talkative and cooperative SKIN: Warm and dry. HEAD: Atraumatic. Normocephalic. EYES: Pupils equal and round. No scleral icterus. No injection or drainage. Extraocular muscles intact ENT: No nasal bleeding or discharge. Mucous membranes pink and moist. Tongue is midline NECK: Trachea midline. No JVD. Supple CARDIOVASCULAR: Regular rate and rhythm. S1-S2 no S3 or S4 RESPIRATORY: No accessory muscle use. Clear to auscultation. Breath sounds equal bilaterally. GASTROINTESTINAL: Abdomen soft, non-tender, nondistended. Hepatic and splenic margins not palpable. MUSCULOSKELETAL: Extremities without clubbing, cyanosis, or edema. No obvious deformities. NEUROLOGICAL: Awake and alert. No obvious cranial nerve deficits. Motor grossly within normal limits. Five out of 5 muscle strength in the arms and legs. Normal speech. PSYCHIATRIC: Appropriate mood and affect; insight and judgment normal. Medications and IVs Current Medications Heparin Sodium (Porcine) (Heparin Inj) 4,000 units ONCE ONCE IV Last administered on 04/03/18at 11:24; Start 04/03/18 at 11:15; Stop 04/03/18 at 11:16 ; Status DC Heparin Sodium (Porcine) (Heparin Inj) 5,000 units UNSCH PRN IV APTT LESS THAN 25; Start 04/03/18 at 17:15 Heparin Sodium (Porcine) (Heparin Inj) 2,500 units UNSCH PRN IV APTT 25 TO 39; Start 04/03/18 at 17:15 Heparin Sodium/ Dextrose 250 ml @ 8 mls/hr TITRATE PRN IV Coagulation Management Last administered on 04/03/18at 12:09; Start 04/03/18 at 11:15 Sodium Chloride (NS Flush) 2 ml UNSCH PRN IV FLUSH FLUSH AFTER USING IV ACCESS ; Start 04/03/18 at 11:15 Sodium Chloride (NS Flush) 2 ml BID IV FLUSH Last administered on 04/04/18at 09: 09; Start 04/03/18 at 21:00 Acetaminophen (Tylenol) 650 mg Q4H PRN PO TEMP > 100.4; Start 04/03/18 at 11:15 Ondansetron HCl (Zofran Inj) 4 mg Q6H PRN IVP NAUSEA OR VOMITING; Start at 11:15 Acetaminophen (Tylenol) 650 mg Q6H PRN PO PAIN SCALE 1 TO 2 Last administered on 04/04/18at 09:09; Start 04/03/18 at 11:15 Naloxone HCl (Narcan Inj) 0.4 mg UNSCH PRN IV PUSH SEE LABEL COMMENTS; Start at 11:15 Magnesium Hydroxide (Milk Of Magntobin Liq) 30 ml Q12H PRN PO Mild constipation ; Start 04/03/18 at 11:15 Aspirin (Aspirin Chew) 162 mg DAILY PO Last administered on 04/04/18at 09:10; Start 04/04/18 at 09:00 Nitroglycerin (Nitrostat Sl) 0.4 mg Q5M PRN SL ANGINA; Start 04/03/18 at 11:15 Albuterol/ Ipratropium (Duoneb Neb) 1 ampule Q2HR NEB PRN NEB SOB/WHEEZING; Start 04/03/18 at 11:15 Metoprolol Tartrate (Lopressor) 12.5 mg Q12HR PO Last administered on at 09:10; Start 04/03/18 at 11:45 Nitroglycerin (Nitroglycerin 2% Oint) 0.5 inch Q6HR TOPICAL Last administered on 04/04/18at 05:55; Start 04/03/18 at 12:00 Levothyroxine Sodium (Synthroid) 112 mcg DAILY@0600 PO Last administered on at 05:55; Start 04/04/18 at 06:00 Pravastatin Sodium (Pravachol) 40 mg DAILY PO Last administered on 04/04/18at 09 :10; Start 04/04/18 at 09:00 Lisinopril (Prinivil) 20 mg DAILY PO ; Start 04/04/18 at 09:00 A/P Problem List: (1) Myocardial ischemia ICD Code: I25.9 - Chronic ischemic heart disease, unspecified Status: Acute Assessment and Plan Assessment and Plan Myocardial ischemia -Patient with increased risk factors include age, postmenopausal without exogenous hormones, hypertension, hyperlipidemia -Initial cardiac enzymes were elevated with troponin 0 0.06, continue to trend cardiac enzyme -Initial EKG indicates incomplete right bundle branch block, ST/T-wave abnormalities consider anterolateral and inferior ischemia, continue serial EKGs -ER physician contacted loader helper sorting yard on-call who recommended patient be transferred to [facility] for evaluation and possible catheterization -Cardiology consultation -Patient will continue on aspirin, start low-dose Lopressor, Nitropaste, continue ROMULO inhibitor, continue statin -Patient will be anticoagulated on heparin IV Hypertension, hyperlipidemia -Home medications have been continued Hypothyroidism -Replacement therapy will be continued DVT prevention -Patient be anticoagulated with heparin IV THC use recommend cessation Discharge Planning Pending cardiac clearance Compa Bryan DO April 04, 2018 11:58
[2018-04-04] MEDS ORDERED: MIDAZOLAM HCL 2 MG/2 ML VIAL ONE (12:33)
[2018-04-04] MEDS ORDERED: HEPARIN-NS/PF INJ 1,000 ML ONE (12:33)
[2018-04-04] MEDS ORDERED: MIDAZOLAM HCL 2 MG/2 ML VIAL IV PUSH ONE (13:01)
--- NOTE | 2018-04-04 13:36 | CATHPROC ---
[employer] HIS Report Study Information Study Number Admission Scheduled Start Study Start [id number] Apr 03 2018 11:10AM 04/04/2018 Apr 04 2018 12:35PM [place] Service Cardiac Catheterization Admit Source Facility Department Emergency department [facility] - Health Education Coordinator Physician and Clinical Staff Initial Anival Yeh Terrazzo Layer Helper Heike Awan,RN Recorder Ousmane Gray,RT(R) Scrub Regulo AbreuRT(R) Procedures Performed Procedure Location (Site) Vessel Name Coronary Angiograms LCA Left Coronary Coronary Angiograms RCA Right Coronary LV Gram-hand inj. LV LV Ventricle Equipment Time Core Filer Description Size Mfg Part Number Used/Scraped CATHETER, FR5 SWAN IRENE 13:08 [employer] FR 5 [id number] *[id number] Used MONITOR TRANSDUCER, TRUWAVE [id number] 12:47 [employer] * Used W/STOCKCOCK *[id number] [id number] *[id number] [id number] *[id number] 12:46 [employer] PACK, CCL CUSTOM * Used *[id number] 12:47 [employer] PACER PEN, SKIN DUAL W/ RULER * Used *[id number] 13:09 [employer] SHEATH, FR5.5 PRELUDE 11CM FR 5 [id number] Used [id number] 12:47 [employer] MEDICAL WIRE, 3MMJ .035 180CM 180CM Used *[id number] 12:46 NAMIC MANIFOLD, 4 PORT * Used *[id number] 12:47 [employer] OMNIPAQUE, 350 MG, 150ML 150ML [id number] Used [id number] 12:47 [employer] MED[employer] BLANKET,WARM AIR CCL * Used *[id number] 12:47 [employer] MEDICAL SHEATH, FR4 TERUMO (10CM) FR 4 Used *[id number] History: Current Medications Medication Dosage/Unit Route Frequency Last Date/Time Taken LISINOPRIL ASA LOPRESSOR History: Allergies Allergy Reaction morphine HIVES/RASH History: Risk Factors Family History of Hypertension Dyslipidemia Previous [place] Previous Heart Failure Premature CAD Yes Yes Yes No No Prior Valve Prior PCI Prior CABG Surgery No No No Cerebrovascular Peripheral Artery Chronic Lung On Dialysis Diabetes Disease Disease Disease No No No No No History: Symptoms/Diagnosis Selection Items Chest pain History: Stress Tests Stress or Imaging Studies Performed No History: Other Disease Selection Items HTN History: Other Current Smoker Method Packs a Day Years Used Pack Years Yes Cigarettes 1 40 40 Labs Hgb (g/dl) Hct (%) WBC (l/cumm) Platelets (thousands) 11.60-17.00 35.00-51.00 4.00-11.00 150.00-450.00 12.8 36.5 6.4 197 Glucose (mg/dl) BUN (mg/dl) Creatinine (mg/dl) BUN:Creatinine (1:x) 74.00-106.00 7.00-18.00 0.50-1.30 10.00-20.00 104 15 0.8 18.8 Na (meq/l) K (meq/l) 136.00-145.00 3.50-5.10 139 3.9 INR (PTT:PT) 0.90-1.10 1.1 Troponin I (ng/ml) CPK (u/l) CPK-MB (ng/ML) 0.02-0.05 26.00-308.00 0.50-3.60 0.08 343 10.5 Medication Medication Total Dose (Bolus/Oral) Medication Total Dosage/Unit 1% XYLOCAINE 20 mL FENTANYL 25 mcg NITRO OINTMENT 0.5 inches VERSED 1 mg Medications (Bolus/Oral) Medication Time Given Dosage/Unit Administered By Reason NITRO OINTMENT 04/04/2018 12:40:31 PM 0.5 inches Patient arrived on 0.5 inches NITRO OINTMENT in Left shoulder via Peripheral IV. VERSED 04/04/2018 1:01:23 PM 1 mg Heike Awan 1 mg VERSED given in lab by Heike Awan RN in Left Forearm via Peripheral IV. FENTANYL 04/04/2018 1:01:31 PM 25 mcg Heike Awan 25 mcg FENTANYL given in lab by Heike Awan, CAPO in Left Forearm via Peripheral IV. 1% XYLOCAINE 04/04/2018 1:02:20 PM 20 mL Anival Ledbetter 20 mL 1% XYLOCAINE given in lab by Anival Ledbetter in Right Groin via Subcutaneous. Medication (Drip) Medication Time Given Dosage/Unit Concentration/Unit Diluent (ml) Solution IV Solutions 04/04/2018 12:36:27 PM 0 mL (IV) 500 NaCl .9 IV Solutions given in lab by Heike Awan, RN in Left Forearm via Peripheral IV. Pump/Drip Flow = 20 ml/hr using NaCl .9. Initial Case Assessment Cardiovascular HR Rhythm NIBP Chest Pain 71 Sinus 113/80 0 Edema Present Skin color Skin None Normal Warm Dry Circulatory - Right Pulses Dorsalis Pedis Femoral 2 2 Scale (0,1,2,3,4,d) Circulatory - Left Pulses Dorsalis Pedis Femoral 2 2 Scale (0,1,2,3,4,d) Neurological State Oriented to time-place- Alert Moves all extremities person Respiration - General Respiration Rate SpO2 (%) O2 (lpm) (B/min) 13 98 0 Final Case Assessment Cardiovascular HR Rhythm NIBP Chest Pain 63 Sinus 96/65 0 Edema Present Skin color Skin None Normal Warm Dry Circulatory - Right Pulses Dorsalis Pedis Femoral 2 2 Scale (0,1,2,3,4,d) Circulatory - Left Pulses Dorsalis Pedis Femoral 2 2 Scale (0,1,2,3,4,d) Neurological State Oriented to time-place- Alert Moves all extremities person Respiration - General Respiration Rate SpO2 (%) O2 (lpm) (B/min) 8 96 0 Chronological Log Time Study Chronological Log 12:34:46 Patient arrived via Bed. 12:34:48 Patient Name, D.O.B, / Armband Verified By R.N. 12:34:49 Consent signed by the physician and the patient and verified by the Health Education Coordinator staff. 12:34:49 Pre-op and post- op instructions given; patient acknowledges understanding of instructions. 12:34:50 Verbal Stimulation=2 Physical Stimulation=2 Airway=2 Respiration=2 TOTAL=8. (0=absent, 1=li mited, 2=present) 12:34:52 Presedation assessment performed by Health Education Coordinator RN. 12:36:03 Patient has been NPO for Less than 6Hrs. 12:36:05 Skin Breakdown-none per patient. 12:36:08 Patient Warmer Placed on the Table. 12:36:10 Tah Prominences Protected 12:36:18 A # 20 IV was noted in the Forearm (left). Grade = 0 IV Solutions given in lab by Heike Awan, RN in Left Forearm via Peripheral IV. Pump/Drip F low = 20 ml/hr using 12:36:27 NaCl .9. 12:36:28 History and physical on the chart or being dictated. Assessment: Initial Case, HR=71 BPM, Rhythm=Sinus, RWCJ=023/80 mmhg, Chest Pain=0, Edema=None, Color=Normal, Skin = Warm, Dry Right Pulses: Leonard Ped=2, Femoral=2 12:36:31 Left Pulses: Leonard Ped=2, Femoral=2 Neurological: State=Alert, Ox3, LEE Respiration: Resp=13 B/min, SpO2=98 %, O2=0 lpm Vitals capture started with the following parameters, Patient=Adult, Interval=5 min, Initial Pr jdepxs=480 mmHg, 12:38:11 Deflation Rate=5 mmHg, Cuff placed on Right Ankle 12:38:50 HR=67 bpm, SSUQ=167/80 mmhg, SpO2=97.0 %, Resp=11 B/min, Pain=0, Juan=10, Akins=2 12:40:31 Patient arrived on 0.5 inches NITRO OINTMENT in Left shoulder via Peripheral IV. 12:42:02 A # 20 IV was noted in the Antecubital (left). Grade = 0 12:43:33 History and physical on the chart or being dictated. 12:43:41 HR=80 bpm, YUWL=283/81 mmhg, SpO2=97.0 %, Resp=18 B/min, Pain=0, Juan=10, Akins=2 12:46:06 Reference ECG taken 12:46:16 Bilateral groins prepped with 2% chlorhexidine, and draped after a 3 minute waiting time. 12:47:44 MD paged 12:48:46 HR=81 bpm, IRTQ=285/72 mmhg, SpO2=98.0 %, Resp=8 B/min, Pain=0, Juan=10, Akins=2 12:49:43 Pressure channel 1 zeroed. 12:49:53 MD responded 12:53:39 HR=73 bpm, NIBP=98/58 mmhg, SpO2=97.0 %, Resp=11 B/min, Pain=0, Juan=10, Akins=2 12:57:09 MD arrived. 12:59:19 HR=61 bpm, NIBP=99/68 mmhg, SpO2=97.0 %, Resp=6 B/min, Pain=0, Juan=10, Akins=2 13:01:23 1 mg VERSED given in lab by Heike Awan, RN in Left Forearm via Peripheral IV. 13:01:31 25 mcg FENTANYL given in lab by Heike Awan, RN in Left Forearm via Peripheral IV. Time Out. Correct patient, correct procedure, correct physician, labs, allergies, and equipment verified with mason tender restoration labor 13:02:14 team present. Fire risk assesment completed (see hard stop sheet for coding). Time Out Conc urred by MD and individual staff in procedure. 13:02:18 Case Start 13:02:20 20 mL 1% XYLOCAINE given in lab by Anival Ledbetter in Right Groin via Subcutaneous. 13:03:43 HR=66 bpm, NIBP=94/55 mmhg, SpO2=96.0 %, Resp=15 B/min, Pain=0, Juan=10, Akins=2 13:03:49 Access site was Right Femoral Artery. 13:04:26 Access site was Right Femoral Artery. 13:04:33 A SHEATH, FR4 TERUMO (10CM) FR 4 was advanced into the Fem Art (right) using the Percutaneo us technique. 13:04:40 Activated Clotting Time Drawn 13:04:52 Saturation: Site=FA (Femoral Artery) , O2=96.4 %, Hgb=12.8 gm/dl, Condition=Condition 1. Us ed in calculation. 13:06:28 Access site was Right Femoral Vein. 13:06:35 A SHEATH, FR5.5 PRELUDE 11CM FR 5 was advanced into the Fem Art (right) using the Percutane ous technique. 13:07:10 A CATHETER, FR5 SWAN IRENE MONITOR FR 5 was inserted via Fem Vein (right) 13:07:55 ACT (Normal Range 90-180) = 169 13:08:46 HR=64 bpm, NIBP=61/26 mmhg, SpO2=94.0 %, Resp=20 B/min, Pain=0, Juan=10, Akins=2 13:09:30 NIBP STAT measurement started. 13:09:56 HR=60 bpm, NIBP=58/30 mmhg, SpO2=95.0 %, Resp=20 B/min, Pain=0, Juan=10, Akins=2 Recorded Pressure: PCW, HR=75, Condition=Condition 1 13:10:27 (Pulmonary Capillary Wedge) PCW Recorded Pressure: MPA, HR=66, Condition=Condition 1 13:10:43 (Main Pulmonary Artery) MPA 13:10:50 Saturation: Site=PA (Pulmonary Artery) , O2=64.8 %, Hgb=12.8 gm/dl, Condition=Condition 1. Used in calculation. Recorded Pressure: RV, HR=63, Condition=Condition 1 13:11:45 (Right Ventricle) RV 13:11:47 NIBP STAT measurement started. Recorded Pressure: RA, HR=73, Condition=Condition 1 13:12:00 (Right Atrium) RA 13:12:09 Saturation: Site=RA (Right Atrium) , Hgb=12.8 gm/dl, Condition=Condition 1. Used in calcula tion. 13:12:13 HR=62 bpm, NIBP=61/36 mmhg, SpO2=96.0 %, Resp=15 B/min, Pain=0, Juan=10, Akins=2 13:12:51 [place] Irene Catheter Removed 13:13:39 HR=64 bpm, NIBP=66/29 mmhg, SpO2=96.0 %, Resp=18 B/min, Pain=0, Juan=10, Akins=2 A JR 4.0 INFINITI CATHETER FR 4 was advanced over a wire. OMNIPAQUE, 350 MG, 150ML 150ML was us ed for 13:13:45 injections. 13:13:50 The LV was manually injected with 6 cc's and visualized. OMNIPAQUE, 350 MG, 150ML 150ML use d. Recorded Pressure: LV, HR=69, Condition=Condition 1 13:14:28 (Left Ventricle) LV 68/-1/7 Recorded Pressure: LV, Ao, HR=66, Condition=Condition 1 13:14:49 (Left Ventricle) LV 64/2/6, (Aorta) Ao 58/38/49 13:15:16 The RCA was injected and visualized at various angles. OMNIPAQUE, 350 MG, 150ML 150ML used . 13:15:36 Catheter was removed A JL 4.0 INFINITI CATHETER FR 4 was advanced over a wire. OMNIPAQUE, 350 MG, 150ML 150ML was us ed for 13:16:19 injections. Recorded Pressure: Ao, HR=75, Condition=Condition 1 13:16:26 (Aorta) Ao 73/49/61 13:16:51 The LCA was injected and visualized at various angles. OMNIPAQUE, 350 MG, 150ML 150ML used . 13:18:21 Catheter was removed 13:19:13 HR=58 bpm, NIBP=96/58 mmhg, SpO2=97.0 %, Resp=6 B/min, Pain=0, Juan=10, Akins=2 13:19:28 Case End 13:19:42 Sheath removed; pressure applied to access site. 13:19:53 No case complications noted. 13:19:54 Cine recording checked. 13:23:32 Bedside Report will be given. 13:23:37 A Left and Right Heart Cath was performed. Assessment: Final Case, HR=63 BPM, Rhythm=Sinus, NIBP=96/65 mmhg, Chest Pain=0, Edema=None, Col or=Normal, Skin = Warm, Dry Right Pulses: Leonard Ped=2, Femoral=2 13:23:42 Left Pulses: Leonard Ped=2, Femoral=2 Neurological: State=Alert, Ox3, LEE Respiration: Resp=8 B/min, SpO2=96 %, O2=0 lpm 13:23:43 HR=68 bpm, NIBP=96/65 mmhg, SpO2=96.0 %, Resp=10 B/min, Pain=0, Juan=10, Akins=2 13:28:08 Sheath removed; pressure applied to access site. 13:28:42 HR=68 bpm, ZAZD=054/67 mmhg, SpO2=98.0 %, Resp=6 B/min, Pain=0, Juan=10, Akins=2 13:31:15 Sterile dressing applied to site 13:33:26 Vitals capture stopped. 13:34:16 Patient moved to stretcher End Study - Contrast Media Used In Study Contrast Total Opened (mL) Total Used (mL) Total Wasted (mL) Omnipaque 150 30 120 End Study - Maximum Contrast Load Max Contrast Load (mL) 436.4 End Study - Radiation Exposure Fluoro Time (minutes) 2.4 End Study - Patient Disposition Complications Transferred To Interventional Outcome No Telemetry Bed No attempt made
[2018-04-04] MEDS ORDERED: BACITRACIN OINT 0.9 GM PKT TOP ONE (14:00)
[2018-04-04] MEDS ORDERED: SODIUM CHLORIDE 0.9% FLUSH 10 ML FLUSH IV FLUSH PRN (14:00)
[2018-04-04] MEDS ORDERED: MISC INFORMATION XX ONE (14:00)
--- NOTE | 2018-04-04 14:05 | MR ---
cc: Anival Ledbetter MD DATE: 04/04/2018 DATE: 04/04/2018 PROCEDURE PERFORMED: Right heart catheterization, left heart catheterization, left ventriculography, coronary angiography. INDICATION: Congestive heart failure, decompensated congestive heart failure, non-STEMI, coronary artery disease, anginal equivalent, [place] Cardiovascular Society Class IV angina, [place] Heart Association Class IV congestive heart failure. METHOD: The patient was brought to the cardiac catheterization laboratory, prepped and draped in the usual sterile fashion. 10 mL of 1% lidocaine was used as locally anesthetize the right common femoral artery. A 4-Nigerien sheath was placed in the right common femoral artery, a 5.5-Nigerien sheath placed in the right common femoral vein. Right heart catheterization was performed first with following findings: Pulmonary capillary wedge pressure is 7/3-2. PA pressure 9/1-5. RV pressure is 12/0-1. RA pressure 5/3-2. Sats on room air : Femoral artery sat 96.4%. PA sat 64.8%. RA sat 65.6%. By Bk the cardiac output is 4.1 liters per minute. Cardiac index is 2.3 liters/m2 per minute. SVR 924.4 dynes. Left heart catheterization was then performed with a 4-Nigerien JR4 and JL4 catheter with the following findings: LV pressure was 70/2-3. The ejection fraction is 40-45%. The left ventricular cavity appears to be small, particularly at the apex. There is complete cavity obliteration at the apex. There is near-cavity obliteration at the base suggestive of hypertrophic cardiomyopathy, possibly with outflow tract obstruction. Right coronary artery is a large, dominant vessel. It has a skinner's crook in the proximal segment. Right after the skinner's crook, there is a 40% stenosis, and then in the proximal mid-segment there is a 40% stenosis. Reference vessel diameter is probably 4 to 4.5 mm. Right PDA and right posterolateral artery have no significant disease angiographically. Left main coronary artery has no significant disease angiographically. Left circumflex vessel has an ostial 50-60% stenosis, reference vessel diameter of 3.5 mm. The first obtuse marginal vessel is a 0.5 mm vessel with no significant disease angiographically. Second obtuse marginal vessel has a proximal bifurcation with a medial branch being a 1.5 mm vessel with no significant obstructive disease, very tortuous. The more lateral branch being a larger vessel 3.0 mm in diameter, reference vessel diameter tortuous, no significant disease angiographically. LAD is non-transapical. It is a tortuous vessel with a mid-30% stenosis. The first diagonal vessel has a proximal bifurcation, reference vessel diameter of 2.75 mm before the bifurcation. Both branches of the bifurcation have no significant disease angiographically and are probably 2.0-2.25 mm vessels, very tortuous. CONCLUSION: 1. Angiographically mild to moderate three-vessel coronary artery disease in a right dominant system, as detailed above. 2. Small left ventricular chamber size with cavity obliteration of the apex and near cavity obliteration of the base suggestive of hypertrophic cardiomyopathy, ejection fraction 40-45%. RECOMMENDATIONS: The patient is being bolused with a liter of normal saline in the laborer poultry hatchery. We will continue to hydrate her with a total of 3 liters, follow up the 2-D echo. In particular, she needs to be evaluated for LV outflow tract obstruction. Currently, she is too hypotensive to receive beta blockers and ROMULO inhibitors. If and when her hemodynamics are optimized and based on her echo results, we will consider adding a beta kimberly and ROMULO inhibitor. MD ROMIE Villagran/TIMOTHY , 01:29 PM , 02:04 PM
[2018-04-04] MEDS ORDERED: IOHEXOL 350 MG/ML 50 ML BTL (for Cath Lab) OTHER ONE (14:10)
--- NOTE | 2018-04-04 14:14 | EKG ---
Date Performed: 04/03/2018 Time Performed: 16:11:50 PTAGE: 62 years EKG: Sinus rhythm MARKED LEFT AXIS DEVIATION SEPTAL MYOCARDIAL INFARCTION MARKED T-WAVE ABNORMALITY, CONSIDER ANTEROLA TERAL ISCHEMIA MODERATE T-WAVE ABNORMALITY, CONSIDER INFERIOR ISCHEMIA ABNORMAL ECG PREVIOUS TRACING : 04/03/2018 09.12 Since the previous tracing, no significant change noted DOCTOR: Jevon Horner Interpretating Date/Time 04/04/2018 14:07:03
--- NOTE | 2018-04-04 14:14 | EKG ---
Date Performed: 04/03/2018 Time Performed: 21:51:32 PTAGE: 62 years EKG: Sinus rhythm Left axis deviation Possible left ventricular hypertrophy Extensive ST-T changes may be due to hyper trophy and/or ischemia Abnormal ECG PREVIOUS TRACING : 04/03/2018 16.11 Since the previous tracing, no significant change noted DOCTOR: Jevon Horner Interpretating Date/Time 04/04/2018 14:06:54
[2018-04-04] MEDS: SODIUM CHLOR 0.9% 1000 ML INJ 1,000 ML IV SCH ×2 (15:11→21:07)
--- NOTE | 2018-04-04 17:59 | ECHRPT ---
Indication: CHEST PAIN CONCLUSIONS The left ventricular systolic function is grossly normal on limited imaging. Trace mitral valve regurgitation. There is mild tricuspid valve regurgitation. BP: 112 / 76 HR: 83 Rhythm: Sinus MEASUREMENTS (Male / Female) Normal Values Technical Quality:Fair 2D ECHO LV Diastolic Diameter PLAX 4.8 cm 4.2 - 5.9 / 3.9 - 5.3 cm LV Systolic Diameter PLAX 3.4 cm IVS Diastolic Thickness 0.7 cm 0.6 - 1.0 / 0.6 - 0.9 cm LVPW Diastolic Thickness 0.7 cm 0.6 - 1.0 / 0.6 - 0.9 cm LV Relative Wall Thickness 0.3 RV Internal Dim ED PLAX 2.0 cm LVOT Diameter 1.8 cm Aortic Root Diameter 2.8 cm LA Systolic Diameter LX 3.1 cm 3.0 - 4.0 / 2.7 - 3.8 cm M-MODE AV Cusp Separation MM 1.6 cm DOPPLER AV Peak Velocity 146.0 cm/s AV Peak Gradient 8.5 mmHg AV Mean Gradient 5.0 mmHg AV Velocity Time Integral 27.6 cm LVOT Peak Velocity 48.1 cm/s LVOT Peak Gradient 0.9 mmHg LVOT Velocity Time Integral 9.9 cm AV Area Cont Eq vti 0.9 cm AV Area Cont Eq pk 0.8 cm Mitral E Point Velocity 68.6 cm/s Mitral A Point Velocity 70.1 cm/s Mitral E to A Ratio 1.0 LV E' Lateral Velocity 11.3 cm/s Mitral E to LV E' Lateral Ratio 6.1 LV E' Septal Velocity 5.2 cm/s Mitral E to LV E' Septal Ratio 13.3 TR Peak Velocity 255.0 cm/s TR Peak Gradient 26.0 mmHg Right Atrial Pressure 10.0 mmHg Pulmonary Artery Systolic Pressu 36.0 mmHg Right Ventricular Systolic Press 36.0 mmHg PV Peak Velocity 62.4 cm/s PV Peak Gradient 1.6 mmHg FINDINGS LEFT VENTRICLE Normal left ventricular size. Wall thickness is normal. The left ventricular systolic function is grossly normal on limited imaging. RIGHT VENTRICLE Normal right ventricular size and systolic function. LEFT ATRIUM The left atrial size is normal. RIGHT ATRIUM The right atrial size is normal. ATRIAL SEPTUM Normal atrial septal thickness. AORTA The aortic root and proximal ascending aorta are normal in size on limited imaging. MITRAL VALVE Grossly normal Trace mitral valve regurgitation. AORTIC VALVE Trileaflet aortic valve. No aortic valve stenosis or regurgitation. TRICUSPID VALVE Grossly normal There is mild tricuspid valve regurgitation. The estimated pulmonary arterial pressure is 36 mmHg. PULMONARY VALVE No pulmonary valve regurgitation or stenosis. VESSELS The inferior vena cava is normal in size. PERICARDIUM No pericardial effusion. Charlie Gonzalez DO (Electronically Signed) Final Date:04 Apr 2018 17:58
[2018-04-04] MEDS ORDERED: SODIUM CHLORIDE 0.9% FLUSH 10 ML FLUSH IV FLUSH SCH (21:00)
[2018-04-05] VITALS (18 sets, daily range): BP systolic 90–112; BP diastolic 51–70; PULSE 58–94; RESP 16–18; TEMP 97.9–98.5; O2SAT 98
[2018-04-05] MEDS: NITROGLYCERIN 2% OINT 1 GM PACKET TOPICAL SCH (05:18)
[2018-04-05] MEDS: LEVOTHYROXINE SODIUM 112 MCG TAB PO SCH (05:18)
[2018-04-05 06:32] LABS: AUTOMATED NEUTROPHIL # 3.2 TH/MM3 (1.8-7.7); BASOPHIL % 0.6 % (0.0-2.0); EOSINOPHIL # 0.1 TH/MM3 (0-0.4); EOSINOPHIL % 1.8 % (0.0-4.0); HEMATOCRIT 31.4 % (35.0-46.0); HEMOGLOBIN 10.8 GM/DL (11.6-15.3); LYMPHOCYTE # 1.7 TH/MM3 (1.0-4.8); MEAN CELL VOLUME 90.6 FL (80.0-100.0); MEAN CORPUSCULAR HEMOGLOBIN 31.1 PG (27.0-34.0); MEAN CORPUSCULAR HGB CONC 34.4 % (32.0-36.0); MEAN PLATELET VOLUME 6.2 FL (7.0-11.0); MONO % 10.7 % (0.0-8.0); MONOCYTE # 0.6 TH/MM3 (0-0.9); NEUT % 56.9 % (16.0-70.0); PLATELET COUNT 170 TH/MM3 (150-450); RED BLOOD COUNT 3.47 MIL/MM3 (4.00-5.30); RED CELL DISTRIBUTION WIDTH 14.1 % (11.6-17.2); WHITE BLOOD COUNT 5.7 TH/MM3 (4.0-11.0)
[2018-04-05 06:55] LABS: ALBUMIN 3.2 GM/DL (3.4-5.0); ALT (GPT) 46 U/L (10-53); AST (GOT) 36 U/L (15-37); BICARBONATE 22.3 MEQ/L (21.0-32.0); BLOOD UREA NITROGEN 14 MG/DL (7-18); CALCIUM 8.2 MG/DL (8.5-10.1); CHLORIDE 113 MEQ/L (98-107); CREATININE 0.75 MG/DL (0.50-1.00); GLOMERULAR FILTRATION RATE 78 ML/MIN (>89); GLUCOSE,RANDOM 90 MG/DL (74-106); MAGNESIUM 2.1 MG/DL (1.5-2.5); PHOSPHORUS 2.4 MG/DL (2.5-4.9); SODIUM (NA) 143 MEQ/L (136-145)
[2018-04-05 07:07] LABS: ALKALINE PHOSPHATASE 50 U/L (45-117); FREE T4 1.16 NG/DL (0.76-1.46); TOTAL BILIRUBIN ADULT 0.5 MG/DL (0.2-1.0)
[2018-04-05] MEDS: ASPIRIN 81 MG CHEW TAB PO SCH (10:14)
[2018-04-05] MEDS: PRAVASTATIN SOD 40 MG TAB PO SCH (10:14)
[2018-04-05] MEDS: SODIUM CHLORIDE 0.9% FLUSH 10 ML FLUSH IV FLUSH SCH (10:15)
--- NOTE | 2018-04-05 14:00 | EKG ---
Date Performed: 04/05/2018 Time Performed: 05:07:54 PTAGE: 62 years EKG: Sinus rhythm LVH with secondary repolarization abnormality Extensive ST-T changes may be due to hypertrophy and/o r ischemia Abnormal ECG PREVIOUS TRACING : 04/04/2018 14.50 DOCTOR: Erik Bey Interpretating Date/Time 04/05/2018 13:58:54
--- NOTE | 2018-04-05 14:17 | EKG ---
Date Performed: 04/04/2018 Time Performed: 14:50:24 PTAGE: 62 years EKG: Sinus bradycardia with sinus arrhythmia Prolonged QT interval rSr'(V1) - probable normal va riant LVH with secondary repolarization abnormality Extensive ST-T changes may be due to hypertrophy and/or ischemia Abnormal ECG PREVIOUS TRACING : 04/03/2018 21.51 DOCTOR: Erik Bey Interpretating Date/Time 04/05/2018 14:16:55
--- NOTE | 2018-04-05 14:57 | HHI.PR ---
Subjective Remarks 62-year-old female with known history of hypertension, hyperlipidemia, hypothyroidism, anxiety who presented to hospital because a few day history of lethargy, nausea, palpitations. Patient states that she normal state of health until approximately 3 days ago when she just started feeling very fatigued, had no energy. She related to her hypothyroidism. States that over the last few months she has been undergoing management for hypothyroidism and told that she had hyperthyroidism and her primary doctor said that she now again has hypothyroidism. However she has been experiencing some nausea over the last 3 days as well as palpitations. Patient decided come to the emergency department for evaluation. Upon workup patient was found to have significantly abnormal EKGs showing myocardial ischemia as well as mildly elevated cardiac enzymes. ER physician did contact registered veterinary technician who recommended admission to main hospital for further evaluation and management. Presently the patient is sitting eating fine. She denies any chest pain, vomiting, shortness of breath, dyspnea, lightheadedness, dizziness. 04-04 patient is hopefully scheduled to undergo cardiac catheterization later today Discussed with patient and RN and family Await cardiac input today A.m. labs 04-05 HAD HEART CATH CAN BE DCED TO HOME TODAY TO FOLLOW UP WITH PCP AND CARDIOLOGY CAN NOT TOLERATED ROMULO INHIBITOR CAN BARELY TOLERATE BETA KIMBERLY DC TO HOME PER PT PCP SAYS HAS HEMATURIA WHICH MAY WORSEN WITH ASPIRIN Objective Vitals Vital Signs Date Time Temp Pulse Resp B/P (MAP) Pulse Ox O2 Delivery O2 Flow Rate FiO2 04/05/18 11:00 98.2 81 16 112/70 (84) 98 04/05/18 07:40 97.9 79 16 95/ 98 04/05/18 06:00 68 04/05/18 05:00 82 04/05/18 04:00 68 04/05/18 03:35 98.5 67 18 90/51 (64) 98 04/05/18 03:00 58 04/05/18 02:00 64 04/05/18 01:00 70 04/05/18 00:00 67 04/04/18 23:08 98.2 71 16 98/54 (69) 97 04/04/18 23:00 66 04/04/18 22:00 72 04/04/18 21:00 64 04/04/18 20:22 98.5 75 20 100/59 (73) 100 04/04/18 20:00 72 04/04/18 19:00 69 04/04/18 18:00 72 04/04/18 17:00 72 04/04/18 16:00 64 04/04/18 15:00 55 04/04/18 15:00 98.1 64 16 110/56 (74) 98 I/O 04/04/18 04/04/18 04/04/18 04/05/18 04/05/18 04/05/18 07:00 15:00 23:00 07:00 15:00 23:00 Intake Total 240 ml 1480 ml 1240 ml Output Total 600 ml 800 ml Balance 240 ml 880 ml 440 ml Intake Oral 240 ml 480 ml 240 ml IV Total 1000 ml 1000 ml Output Urine Total 600 ml 800 ml # Voids 1 1 Result Diagram: 04/05/18 0617 04/05/18 0617 Other Results Laboratory Tests Test 04/03/18 08:50 04/03/18 08:55 04/03/18 09:35 04/03/18 16:05 Urine Collection Type VOIDED Urine Color YELLOW Urine Turbidity CLEAR Urine pH 5.0 Urine Specific [place] 1.025 Urine Protein TRACE mg/dL Urine Glucose (UA) NEG mg/dL Urine Ketones NEG mg/dL Urine Occult Blood LARGE Urine Nitrite NEG Urine Bilirubin NEG Urine Urobilinogen 0.2 MG/DL Urine Leukocyte Esterase NEG Urine RBC 4-9 /hpf Urine WBC 0-2 /hpf Urine Squamous Epithelial Cells 0-3 /hpf Urine Mucus MANY /lpf Microscopic Urinalysis Comment CULT NOT INDICATED White Blood Count 7.0 TH/MM3 Red Blood Count 4.38 MIL/MM3 Hemoglobin 13.5 GM/DL Hematocrit 40.1 % Mean Corpuscular Volume 91.5 FL Mean Corpuscular Hemoglobin 30.8 PG Mean Corpuscular Hemoglobin Concent 33.7 % Red Cell Distribution Width 13.5 % Platelet Count 229 TH/MM3 Mean Platelet Volume 5.9 FL Neutrophils (%) (Auto) 68.9 % Lymphocytes (%) (Auto) 22.2 % Monocytes (%) (Auto) 7.1 % Eosinophils (%) (Auto) 0.7 % Basophils (%) (Auto) 1.1 % Neutrophils # (Auto) 4.9 TH/MM3 Lymphocytes # (Auto) 1.5 TH/MM3 Monocytes # (Auto) 0.5 TH/MM3 Eosinophils # (Auto) 0.0 TH/MM3 Basophils # (Auto) 0.1 TH/MM3 CBC Comment DIFF FINAL Differential Comment Prothrombin Time 10.8 SEC Prothromb Time International Ratio 1.1 RATIO Activated Partial Thromboplast Time 25.1 SEC Blood Urea Nitrogen 18 MG/DL Creatinine 1.00 MG/DL Random Glucose 128 MG/DL Total Protein 8.3 GM/DL Albumin 4.4 GM/DL Calcium Level 9.5 MG/DL Alkaline Phosphatase 67 U/L Aspartate Amino Transf (AST/SGOT) 34 U/L Alanine Aminotransferase (ALT/SGPT) 44 U/L Total Bilirubin 0.5 MG/DL Sodium Level 140 MEQ/L Potassium Level 3.6 MEQ/L Chloride Level 106 MEQ/L Carbon Dioxide Level 25.0 MEQ/L Anion Gap 9 MEQ/L Estimat Glomerular Filtration Rate 56 ML/MIN Thyroid Stimulating Hormone 3rd Gen 6.960 uIU/ML Magnesium Level 2.3 MG/DL Total Creatine Kinase 252 U/L 253 U/L Creatine Kinase MB 7.8 NG/ML 8.2 NG/ML Creatine Kinase MB % 3.1 % 3.2 % Troponin I 0.06 NG/ML 0.08 NG/ML B-Type Natriuretic Peptide 239 PG/ML Test 04/03/18 21:45 04/04/18 04:58 04/05/18 05:17 04/05/18 06:07 Activated Partial Thromboplast Time 57.2 SEC 59.0 SEC 25.7 SEC Total Creatine Kinase 343 U/L Creatine Kinase MB 10.5 NG/ML Creatine Kinase MB % 3.1 % Troponin I 0.06 NG/ML White Blood Count 6.4 TH/MM3 Red Blood Count 4.07 MIL/MM3 Hemoglobin 12.8 GM/DL Hematocrit 36.5 % Mean Corpuscular Volume 89.7 FL Mean Corpuscular Hemoglobin 31.5 PG Mean Corpuscular Hemoglobin Concent 35.2 % Red Cell Distribution Width 14.4 % Platelet Count 197 TH/MM3 Mean Platelet Volume 6.3 FL Neutrophils (%) (Auto) 46.7 % Lymphocytes (%) (Auto) 40.5 % Monocytes (%) (Auto) 9.7 % Eosinophils (%) (Auto) 2.3 % Basophils (%) (Auto) 0.8 % Neutrophils # (Auto) 3.0 TH/MM3 Lymphocytes # (Auto) 2.6 TH/MM3 Monocytes # (Auto) 0.6 TH/MM3 Eosinophils # (Auto) 0.1 TH/MM3 Basophils # (Auto) 0.1 TH/MM3 CBC Comment DIFF FINAL Differential Comment Blood Urea Nitrogen 15 MG/DL Creatinine 0.83 MG/DL Random Glucose 104 MG/DL Total Protein 7.5 GM/DL Albumin 3.9 GM/DL Calcium Level 8.9 MG/DL Magnesium Level 2.3 MG/DL Alkaline Phosphatase 60 U/L Aspartate Amino Transf (AST/SGOT) 40 U/L Alanine Aminotransferase (ALT/SGPT) 40 U/L Total Bilirubin 0.5 MG/DL Sodium Level 139 MEQ/L Potassium Level 3.9 MEQ/L Chloride Level 106 MEQ/L Carbon Dioxide Level 23.7 MEQ/L Anion Gap 9 MEQ/L Estimat Glomerular Filtration Rate 70 ML/MIN B-Type Natriuretic Peptide 245 PG/ML 384 PG/ML Triglycerides Level 100 MG/DL Cholesterol Level 194 MG/DL LDL Cholesterol 118 MG/DL HDL Cholesterol 56.1 MG/DL Cholesterol/HDL Ratio 3.45 RATIO Test 04/05/18 06:17 White Blood Count 5.7 TH/MM3 Red Blood Count 3.47 MIL/MM3 Hemoglobin 10.8 GM/DL Hematocrit 31.4 % Mean Corpuscular Volume 90.6 FL Mean Corpuscular Hemoglobin 31.1 PG Mean Corpuscular Hemoglobin Concent 34.4 % Red Cell Distribution Width 14.1 % Platelet Count 170 TH/MM3 Mean Platelet Volume 6.2 FL Neutrophils (%) (Auto) 56.9 % Lymphocytes (%) (Auto) 30.0 % Monocytes (%) (Auto) 10.7 % Eosinophils (%) (Auto) 1.8 % Basophils (%) (Auto) 0.6 % Neutrophils # (Auto) 3.2 TH/MM3 Lymphocytes # (Auto) 1.7 TH/MM3 Monocytes # (Auto) 0.6 TH/MM3 Eosinophils # (Auto) 0.1 TH/MM3 Basophils # (Auto) 0.0 TH/MM3 CBC Comment DIFF FINAL Differential Comment Blood Urea Nitrogen 14 MG/DL Creatinine 0.75 MG/DL Random Glucose 90 MG/DL Total Protein 6.0 GM/DL Albumin 3.2 GM/DL Calcium Level 8.2 MG/DL Phosphorus Level 2.4 MG/DL Magnesium Level 2.1 MG/DL Alkaline Phosphatase 50 U/L Aspartate Amino Transf (AST/SGOT) 36 U/L Alanine Aminotransferase (ALT/SGPT) 46 U/L Total Bilirubin 0.5 MG/DL Sodium Level 143 MEQ/L Potassium Level 3.9 MEQ/L Chloride Level 113 MEQ/L Carbon Dioxide Level 22.3 MEQ/L Anion Gap 8 MEQ/L Estimat Glomerular Filtration Rate 78 ML/MIN Free Thyroxine 1.16 NG/DL Thyroid Stimulating Hormone 3rd Gen 5.220 uIU/ML Imaging Last Impressions Chest X-Ray 04/03/18 0917 Signed Impressions: CONCLUSION: No acute cardiopulmonary disease Objective Remarks GENERAL: Awake alert and oriented 3 talkative and cooperative SKIN: Warm and dry. HEAD: Atraumatic. Normocephalic. EYES: Pupils equal and round. No scleral icterus. No injection or drainage. Extraocular muscles intact ENT: No nasal bleeding or discharge. Mucous membranes pink and moist. Tongue is midline NECK: Trachea midline. No JVD. Supple CARDIOVASCULAR: Regular rate and rhythm. S1-S2 no S3 or S4 RESPIRATORY: No accessory muscle use. Clear to auscultation. Breath sounds equal bilaterally. GASTROINTESTINAL: Abdomen soft, non-tender, nondistended. Hepatic and splenic margins not palpable. MUSCULOSKELETAL: Extremities without clubbing, cyanosis, or edema. No obvious deformities. NEUROLOGICAL: Awake and alert. No obvious cranial nerve deficits. Motor grossly within normal limits. Five out of 5 muscle strength in the arms and legs. Normal speech. PSYCHIATRIC: Appropriate mood and affect; insight and judgment normal. Procedures 04/04/2018 PROCEDURE PERFORMED: Right heart catheterization, left heart catheterization, left ventriculography, coronary angiography. INDICATION: Congestive heart failure, decompensated congestive heart failure, non-STEMI, coronary artery disease, anginal equivalent, [place] Cardiovascular Society Class IV angina, [place] Heart Association Class IV congestive heart failure. METHOD: The patient was brought to the cardiac catheterization laboratory, prepped and draped in the usual sterile fashion. 10 mL of 1% lidocaine was used as locally anesthetize the right common femoral artery. A 4-Lithuanian sheath was placed in the right common femoral artery, a 5.5-Lithuanian sheath placed in the right common femoral vein. Right heart catheterization was performed first with following findings: Pulmonary capillary wedge pressure is 7/3-2. PA pressure 9/1-5. RV pressure is 12/0-1. RA pressure 5/3-2. Sats on room air : Femoral artery sat 96.4%. PA sat 64.8%. RA sat 65.6%. By Bk the cardiac output is 4.1 liters per minute. Cardiac index is 2.3 liters/m2 per minute. SVR 924.4 dynes. Left heart catheterization was then performed with a 4-Lithuanian JR4 and JL4 catheter with the following findings: LV pressure was 70/2-3. The ejection fraction is 40-45%. The left ventricular cavity appears to be small, particularly at the apex. There is complete cavity obliteration at the apex. There is near-cavity obliteration at the base suggestive of hypertrophic cardiomyopathy, possibly with outflow tract obstruction. Right coronary artery is a large, dominant vessel. It has a skinner's crook in the proximal segment. Right after the skinner's crook, there is a 40% stenosis, and then in the proximal mid-segment there is a 40% stenosis. Reference vessel diameter is probably 4 to 4.5 mm. Right PDA and right posterolateral artery have no significant disease angiographically. Left main coronary artery has no significant disease angiographically. Left circumflex vessel has an ostial 50-60% stenosis, reference vessel diameter of 3.5 mm. The first obtuse marginal vessel is a 0.5 mm vessel with no significant disease angiographically. Second obtuse marginal vessel has a proximal bifurcation with a medial branch being a 1.5 mm vessel with no significant obstructive disease, very tortuous. The more lateral branch being a larger vessel 3.0 mm in diameter, reference vessel diameter tortuous, no significant disease angiographically. LAD is non-transapical. It is a tortuous vessel with a mid-30% stenosis. The first diagonal vessel has a proximal bifurcation, reference vessel diameter of 2.75 mm before the bifurcation. Both branches of the bifurcation have no significant disease angiographically and are probably 2.0-2.25 mm vessels, very tortuous. CONCLUSION: 1. Angiographically mild to moderate three-vessel coronary artery disease in a right dominant system, as detailed above. 2. Small left ventricular chamber size with cavity obliteration of the apex and near cavity obliteration of the base suggestive of hypertrophic cardiomyopathy, ejection fraction 40-45%. RECOMMENDATIONS: The patient is being bolused with a liter of normal saline in the optical lab technician. We will continue to hydrate her with a total of 3 liters, follow up the 2-D echo. In particular, she needs to be evaluated for LV outflow tract obstruction. Currently, she is too hypotensive to receive beta blockers and ROMULO inhibitors. If and when her hemodynamics are optimized and based on her echo results, we will consider adding a beta kimberly and ROMULO inhibitor. Anival Ledbetter MD Medications and IVs Current Medications Heparin Sodium (Porcine) (Heparin Inj) 4,000 units ONCE ONCE IV Last administered on 04/03/18at 11:24; Start 04/03/18 at 11:15; Stop 04/03/18 at 11:16 ; Status DC Heparin Sodium (Porcine) (Heparin Inj) 5,000 units UNSCH PRN IV APTT LESS THAN 25; Start 04/03/18 at 17:15; Stop 04/04/18 at 13:59; Status DC Heparin Sodium (Porcine) (Heparin Inj) 2,500 units UNSCH PRN IV APTT 25 TO 39; Start 04/03/18 at 17:15; Stop 04/04/18 at 13:59; Status DC Heparin Sodium/ Dextrose 250 ml @ 8 mls/hr TITRATE PRN IV Coagulation Management Last administered on 04/03/18at 12:09; Start 04/03/18 at 11:15; Stop 04/04/18 at 13:59; Status DC Sodium Chloride (NS Flush) 2 ml UNSCH PRN IV FLUSH FLUSH AFTER USING IV ACCESS ; Start 04/03/18 at 11:15 Sodium Chloride (NS Flush) 2 ml BID IV FLUSH Last administered on 04/05/18at 10: 15; Start 04/03/18 at 21:00 Acetaminophen (Tylenol) 650 mg Q4H PRN PO TEMP > 100.4; Start 04/03/18 at 11:15 Ondansetron HCl (Zofran Inj) 4 mg Q6H PRN IVP NAUSEA OR VOMITING; Start at 11:15 Acetaminophen (Tylenol) 650 mg Q6H PRN PO PAIN SCALE 1 TO 2 Last administered on 04/04/18at 09:09; Start 04/03/18 at 11:15 Naloxone HCl (Narcan Inj) 0.4 mg UNSCH PRN IV PUSH SEE LABEL COMMENTS; Start at 11:15 Magnesium Hydroxide (Milk Of Magnesia Liq) 30 ml Q12H PRN PO Mild constipation ; Start 04/03/18 at 11:15 Aspirin (Aspirin Chew) 162 mg DAILY PO Last administered on 04/05/18at 10:14; Start 04/04/18 at 09:00 Nitroglycerin (Nitrostat Sl) 0.4 mg Q5M PRN SL ANGINA; Start 04/03/18 at 11:15 Albuterol/ Ipratropium (Duoneb Neb) 1 ampule Q2HR NEB PRN NEB SOB/WHEEZING; Start 04/03/18 at 11:15 Metoprolol Tartrate (Lopressor) 12.5 mg Q12HR PO Last administered on at 21:08; Start 04/03/18 at 11:45 Nitroglycerin (Nitroglycerin 2% Oint) 0.5 inch Q6HR TOPICAL Last administered on 04/05/18at 05:18; Start 04/03/18 at 12:00 Levothyroxine Sodium (Synthroid) 112 mcg DAILY@0600 PO Last administered on at 05:18; Start 04/04/18 at 06:00; Stop 04/05/18 at 09:00; Status DC Pravastatin Sodium (Pravachol) 40 mg DAILY PO Last administered on 04/05/18at 10 :14; Start 04/04/18 at 09:00 Lisinopril (Prinivil) 20 mg DAILY PO ; Start 04/04/18 at 09:00 Heparin Sodium/ Sodium Chloride 1,000 ml @ As Directed STK-MED ONCE .ROUTE Last administered on 04/04/18at 12:33; Start 04/04/18 at 12:33; Stop 04/04/18 at 12:34; Status DC Midazolam HCl (Versed Inj) 2 mg STK-MED ONCE .ROUTE Last administered on at 12:33; Start 04/04/18 at 12:33; Stop 04/04/18 at 12:34; Status DC Fentanyl Citrate (fentaNYL INJ) 100 mcg STK-MED ONCE .ROUTE Last administered on 04/04/18at 13:02; Start 04/04/18 at 12:33; Stop 04/04/18 at 12:34; Status DC Sodium Chloride (NS Flush) 2 ml BID IV FLUSH Last administered on 04/04/18at 21: 08; Start 04/04/18 at 21:00 Sodium Chloride (NS Flush) 2 ml UNSCH PRN IV FLUSH FLUSH AFTER USING IV ACCESS ; Start 04/04/18 at 14:00 Miscellaneous Information 1 ONCE ONCE XX ; Start 04/04/18 at 14:00; Stop at 14:07; Status DC Bacitracin (Bacitracin Oint Packet) 0.9 gm ONCE ONCE TOP Last administered on 04/04/18at 14:00; Start 04/04/18 at 14:00; Stop 04/04/18 at 14:07; Status DC Iohexol (OMNIPAQUE 350 INJ (Quill Picking Machine Operator)) 50 ml STK-MED ONCE OTHER Last administered on 04/04/18at 14:10; Start 04/04/18 at 14:10; Stop 04/04/18 at 14:11 ; Status DC Sodium Chloride 1,000 ml @ 125 mls/hr Q8H IV Last administered on 04/04/18at 21 :07; Start 04/04/18 at 15:00; Stop 04/05/18 at 06:59; Status DC Midazolam HCl (Versed Inj) 1 mg ONCE ONCE IV PUSH ; Start 04/04/18 at 13:01; Stop 04/04/18 at 14:59; Status DC Fentanyl Citrate (fentaNYL INJ) 25 mcg ONCE ONCE IV PUSH ; Start 04/04/18 at 13 :02; Stop 04/04/18 at 14:59; Status DC Levothyroxine Sodium (Synthroid) 125 mcg DAILY@0600 PO ; Start 04/06/18 at 06:00 A/P Problem List: (1) Myocardial ischemia ICD Code: I25.9 - Chronic ischemic heart disease, unspecified Status: Acute Assessment and Plan Assessment and Plan Myocardial ischemia -Patient with increased risk factors include age, postmenopausal without exogenous hormones, hypertension, hyperlipidemia -Initial cardiac enzymes were elevated with troponin 0 0.06, continue to trend cardiac enzyme -Initial EKG indicates incomplete right bundle branch block, ST/T-wave abnormalities consider anterolateral and inferior ischemia, continue serial EKGs -ER physician contacted registered veterinary technician on-call who recommended patient be transferred to [facility] for evaluation and possible catheterization -Cardiology consultation -Patient will continue on aspirin, start low-dose Lopressor, Nitropaste, continue ROMULO inhibitor, continue statin -Patient will be anticoagulated on heparin IV Hypertension, hyperlipidemia -Home medications have been continued Hypothyroidism -Replacement therapy will be continued DVT prevention -Patient be anticoagulated with heparin IV THC use recommend cessation DC TO HOME TODAY PATIENT STATES HER PCP SAYS HAD BLOOD IN URINE WHICH SHE CAN FOLLOW UP AN OUTPT Discharge Planning Pending cardiac clearance Compa Bryan DO April 05, 2018 14:57
[2018-04-05] MEDS ORDERED: VITA2000 PO (15:09)
[2018-04-05] MEDS ORDERED: LEVO.125 PO (15:09)
[2018-04-05] MEDS ORDERED: METO25TA3 PO (15:09)
[2018-04-05] MEDS ORDERED: MULTTAB67 PO (15:09)
[2018-04-05] MEDS ORDERED: SIMV20TA PO (15:09)
[2018-04-05] MEDS ORDERED: ASPI81 PO (15:09)
--- NOTE | 2018-04-05 15:13 | HHI.DS ---
Discharge Summary Admission Date April 03, 2018 at 11:10 Discharge Date: April 05, 2018 Admitting Diagnosis MYOCARDIAL ISCHEMIA (1) Myocardial ischemia ICD Code: I25.9 - Chronic ischemic heart disease, unspecified Diagnosis: Principal Status: Acute (2) Hypercholesterolemia ICD Code: E78.00 - Pure hypercholesterolemia, unspecified Diagnosis: Secondary (3) Hypothyroidism ICD Code: E03.9 - Hypothyroidism, unspecified Diagnosis: Secondary (4) Tetrahydrocannabinol (THC) use disorder, mild, abuse ICD Code: F12.10 - Cannabis abuse, uncomplicated Procedures 04/04/2018 PROCEDURE PERFORMED: Right heart catheterization, left heart catheterization, left ventriculography, coronary angiography. INDICATION: Congestive heart failure, decompensated congestive heart failure, non-STEMI, coronary artery disease, anginal equivalent, [place] [employer] Class IV angina, [place] [employer] Class IV congestive heart failure. METHOD: The patient was brought to the cardiac catheterization laboratory, prepped and draped in the usual sterile fashion. 10 mL of 1% lidocaine was used as locally anesthetize the right common femoral artery. A 4-Panamanian sheath was placed in the right common femoral artery, a 5.5-Panamanian sheath placed in the right common femoral vein. Right heart catheterization was performed first with following findings: Pulmonary capillary wedge pressure is 7/3-2. PA pressure 9/1-5. RV pressure is 12/0-1. RA pressure 5/3-2. Sats on room air : Femoral artery sat 96.4%. PA sat 64.8%. RA sat 65.6%. By Bk the cardiac output is 4.1 liters per minute. Cardiac index is 2.3 liters/m2 per minute. SVR 924.4 dynes. Left heart catheterization was then performed with a 4-[place]amanian JR4 and JL4 catheter with the following findings: LV pressure was 70/2-3. The ejection fraction is 40-45%. The left ventricular cavity appears to be small, particularly at the apex. There is complete cavity obliteration at the apex. There is near-cavity obliteration at the base suggestive of hypertrophic cardiomyopathy, possibly with outflow tract obstruction. Right coronary artery is a large, dominant vessel. It has a skinner's crook in the proximal segment. Right after the skinner's crook, there is a 40% stenosis, and then in the proximal mid-segment there is a 40% stenosis. Reference vessel diameter is probably 4 to 4.5 mm. Right PDA and right posterolateral artery have no significant disease angiographically. Left main coronary artery has no significant disease angiographically. Left circumflex vessel has an ostial 50-60% stenosis, reference vessel diameter of 3.5 mm. The first obtuse marginal vessel is a 0.5 mm vessel with no significant disease angiographically. Second obtuse marginal vessel has a proximal bifurcation with a medial branch being a 1.5 mm vessel with no significant obstructive disease, very tortuous. The more lateral branch being a larger vessel 3.0 mm in diameter, reference vessel diameter tortuous, no significant disease angiographically. LAD is non-transapical. It is a tortuous vessel with a mid-30% stenosis. The first diagonal vessel has a proximal bifurcation, reference vessel diameter of 2.75 mm before the bifurcation. Both branches of the bifurcation have no significant disease angiographically and are probably 2.0-2.25 mm vessels, very tortuous. CONCLUSION: 1. Angiographically mild to moderate three-vessel coronary artery disease in a right dominant system, as detailed above. 2. Small left ventricular chamber size with cavity obliteration of the apex and near cavity obliteration of the base suggestive of hypertrophic cardiomyopathy, ejection fraction 40-45%. RECOMMENDATIONS: The patient is being bolused with a liter of normal saline in the laborer cook house. We will continue to hydrate her with a total of 3 liters, follow up the 2-D echo. In particular, she needs to be evaluated for LV outflow tract obstruction. Currently, she is too hypotensive to receive beta blockers and ROMULO inhibitors. If and when her hemodynamics are optimized and based on her echo results, we will consider adding a beta kimberly and ROMULO inhibitor. Anival Ledbetter MD Brief History - From Admission 62-year-old female with known history of hypertension, hyperlipidemia, hypothyroidism, anxiety who presented to hospital because a few day history of lethargy, nausea, palpitations. Patient states that she normal state of health until approximately 3 days ago when she just started feeling very fatigued, had no energy. She related to her hypothyroidism. States that over the last few months she has been undergoing management for hypothyroidism and told that she had hyperthyroidism and her primary doctor said that she now again has hypothyroidism. However she has been experiencing some nausea over the last 3 days as well as palpitations. Patient decided come to the emergency department for evaluation. Upon workup patient was found to have significantly abnormal EKGs showing myocardial ischemia as well as mildly elevated cardiac enzymes. ER physician did contact [facility] who recommended admission to [facility] for further evaluation and management. Presently the patient is sitting eating fine. She denies any chest pain, vomiting, shortness of breath, dyspnea, lightheadedness, dizziness. CBC/BMP: 04/05/18 0617 04/05/18 0617 Significant Findings Laboratory Tests Test 04/03/18 08:50 04/03/18 08:55 04/03/18 09:35 04/03/18 16:05 Urine Occult Blood LARGE (NEG) Urine RBC 4-9 /hpf (0-3) Urine Mucus MANY /lpf (OCC) Mean Platelet Volume 5.9 FL (7.0-11.0) Random Glucose 128 MG/DL (74-106) Total Protein 8.3 GM/DL (6.4-8.2) Estimat Glomerular Filtration Rate 56 ML/MIN (>89) Thyroid Stimulating Hormone 3rd Gen 6.960 uIU/ML (0.358-3.740) Total Creatine Kinase 252 U/L (26-192) 253 U/L (26-192) Creatine Kinase MB 7.8 NG/ML (0.5-3.6) 8.2 NG/ML (0.5-3.6) Troponin I 0.06 NG/ML (0.02-0.05) 0.08 NG/ML (0.02-0.05) B-Type Natriuretic Peptide 239 PG/ML (0-100) Test 04/03/18 21:45 04/04/18 04:58 04/05/18 05:17 04/05/18 06:07 Activated Partial Thromboplast Time 57.2 SEC (24.3-30.1) 59.0 SEC (24.3-30.1) Total Creatine Kinase 343 U/L (26-192) Creatine Kinase MB 10.5 NG/ML (0.5-3.6) Troponin I 0.06 NG/ML (0.02-0.05) Mean Platelet Volume 6.3 FL (7.0-11.0) Monocytes (%) (Auto) 9.7 % (0.0-8.0) Aspartate Amino Transf (AST/SGOT) 40 U/L (15-37) Estimat Glomerular Filtration Rate 70 ML/MIN (>89) B-Type Natriuretic Peptide 245 PG/ML (0-100) 384 PG/ML (0-100) LDL Cholesterol 118 MG/DL (0-99) Test 04/05/18 06:17 Red Blood Count 3.47 MIL/MM3 (4.00-5.30) Hemoglobin 10.8 GM/DL (11.6-15.3) Hematocrit 31.4 % (35.0-46.0) Mean Platelet Volume 6.2 FL (7.0-11.0) Monocytes (%) (Auto) 10.7 % (0.0-8.0) Total Protein 6.0 GM/DL (6.4-8.2) Albumin 3.2 GM/DL (3.4-5.0) Calcium Level 8.2 MG/DL (8.5-10.1) Phosphorus Level 2.4 MG/DL (2.5-4.9) Chloride Level 113 MEQ/L (98-107) Estimat Glomerular Filtration Rate 78 ML/MIN (>89) Thyroid Stimulating Hormone 3rd Gen 5.220 uIU/ML (0.358-3.740) Imaging Last Impressions Chest X-Ray 04/03/18 0990 Signed Impressions: CONCLUSION: No acute cardiopulmonary disease PE at Discharge GENERAL: Awake alert and oriented 3 talkative and cooperative SKIN: Warm and dry. HEAD: Atraumatic. Normocephalic. EYES: Pupils equal and round. No scleral icterus. No injection or drainage. Extraocular muscles intact ENT: No nasal bleeding or discharge. Mucous membranes pink and moist. Tongue is midline NECK: Trachea midline. No JVD. Supple CARDIOVASCULAR: Regular rate and rhythm. S1-S2 no S3 or S4 RESPIRATORY: No accessory muscle use. Clear to auscultation. Breath sounds equal bilaterally. GASTROINTESTINAL: Abdomen soft, non-tender, nondistended. Hepatic and splenic margins not palpable. MUSCULOSKELETAL: Extremities without clubbing, cyanosis, or edema. No obvious deformities. NEUROLOGICAL: Awake and alert. No obvious cranial nerve deficits. Motor grossly within normal limits. Five out of 5 muscle strength in the arms and legs. Normal speech. PSYCHIATRIC: Appropriate mood and affect; insight and judgment normal. Hospital Course 62-year-old female with known history of hypertension, hyperlipidemia, hypothyroidism, anxiety who presented to hospital because a few day history of lethargy, nausea, palpitations. Patient states that she normal state of health until approximately 3 days ago when she just started feeling very fatigued, had no energy. She related to her hypothyroidism. States that over the last few months she has been undergoing management for hypothyroidism and told that she had hyperthyroidism and her primary doctor said that she now again has hypothyroidism. However she has been experiencing some nausea over the last 3 days as well as palpitations. Patient decided come to the emergency department for evaluation. Upon workup patient was found to have significantly abnormal EKGs showing myocardial ischemia as well as mildly elevated cardiac enzymes. ER physician did contact [facility] who recommended admission to [facility] for further evaluation and management. Presently the patient is sitting eating fine. She denies any chest pain, vomiting, shortness of breath, dyspnea, lightheadedness, dizziness. 5-29 patient is hopefully scheduled to undergo cardiac catheterization later today Discussed with patient and RN and family Await cardiac input today A.m. labs 5-30 HAD HEART CATH CAN BE DCED TO HOME TODAY TO FOLLOW UP WITH PCP AND CARDIOLOGY CAN NOT TOLERATED ROMULO INHIBITOR CAN BARELY TOLERATE BETA KIMBERLY DC TO HOME PER PT PCP SAYS HAS HEMATURIA WHICH MAY WORSEN WITH ASPIRIN HYPOTHYROIDISM NEEDS INCREASE IN MED HYPERLIPIDEMIA CONTINUE STATIN NOT ABLE TO TOLERATED ROMULO INHIBITOR BETA KIMBERLY AND ASPIRIN AND STATIN Pt Condition on Discharge: Good Discharge Disposition: Discharge Home Discharge Time: > 30 minutes Discharge Instructions DIET: Follow Instructions for: Heart Healthy Diet Speech Therapy-Diet Recommends: Regular Additional Diet Instructions: STOP SMOKING MARIJUANA Activities you can perform: Shower Only-No Bath Follow up Referrals: Cardiology - 2 Weeks with Anival Ledbetter MD PCP Follow-up - 1 Week New Medications: Aspirin (Tgt Aspirin) 81 Mg Chw 162 MG PO DAILY for Blood Clot Prevention, #60 EA Levothyroxine (Synthroid) 125 Mcg Tab 125 MCG PO DAILY@0600 for Thyroid, #30 TAB Metoprolol Tartrate (Metoprolol Tartrate) 25 Mg Tab 12.5 MG PO Q12HR for Blood Pressure Management, #30 TAB Continued Medications: Cholecalciferol (Vitamin D3) 2,000 Unit Cap 2000 UNITS PO DAILY for Nutritional Supplement, #60 CAP 0 Refills (This prescription has been renewed) Lorazepam (Lorazepam) 2 Mg Tab 2 MG PO DIRECTED PRN for ANXIETY, TAB 0 Refills Multiple Vitamin (Multiple Vitamin) 1 Tab 1 TAB PO DAILY for Nutritional Supplement, #30 TAB 0 Refills (This prescription has been renewed) Simvastatin (Simvastatin) 20 Mg Tab 20 MG PO DAILY for Cholesterol Management, #30 TAB 0 Refills (This prescription has been renewed) Discontinued Medications: Aspirin DR (Aspirin EC) 81 Mg Tabdr 81 MG PO DAILY, TAB 0 Refills Levothyroxine (Levothyroxine) 112 Mcg Tab 112 MCG PO DAILY for Thyroid, #30 TAB 0 Refills Lisinopril-Hctz (Lisinopril-Hctz) 20-12.5 Mg Tab 1 TAB PO DAILY for Blood Pressure Management, #30 TAB 0 Refills Additional Information STOP SMOKING MARIJUANA Compa Bryan DO April 05, 2018 15:13
[2018-04-05 16:20] LABS: HEMOGLOBIN A1C 5.4 % (4.3-6.0)
--- NOTE | 2018-04-05 19:36 | PD.CARD.PN ---
Subjective Subjective Remarks alert in nad Objective Vital Signs / I&O Vital Signs Date Time Temp Pulse Resp B/P (MAP) Pulse Ox O2 Delivery O2 Flow Rate FiO2 04/05/18 15:00 81 04/05/18 14:00 80 04/05/18 13:00 81 04/05/18 12:00 94 04/05/18 11:00 98.2 81 16 112/70 (84) 98 04/05/18 11:00 81 04/05/18 10:00 86 04/05/18 09:00 86 04/05/18 08:00 70 04/05/18 07:40 97.9 79 16 95/ 98 04/05/18 07:00 81 04/05/18 06:00 68 04/05/18 05:00 82 04/05/18 04:00 68 04/05/18 03:35 98.5 67 18 90/51 (64) 98 04/05/18 03:00 58 04/05/18 02:00 64 04/05/18 01:00 70 04/05/18 00:00 67 04/04/18 23:08 98.2 71 16 98/54 (69) 97 04/04/18 23:00 66 04/04/18 22:00 72 04/04/18 21:00 64 04/04/18 20:22 98.5 75 20 100/59 (73) 100 04/04/18 20:00 72 I/O 04/04/18 04/04/18 04/04/18 04/05/18 04/05/18 04/05/18 07:00 15:00 23:00 07:00 15:00 23:00 Intake Total 240 ml 1480 ml 1240 ml Output Total 600 ml 800 ml Balance 240 ml 880 ml 440 ml Intake Oral 240 ml 480 ml 240 ml IV Total 1000 ml 1000 ml Output Urine Total 600 ml 800 ml # Voids 1 1 Laboratory GENERAL: SKIN: Warm and dry. HEAD: Normocephalic. EYES: No scleral icterus. No injection or drainage. NECK: Supple, trachea midline. No JVD or lymphadenopathy. CARDIOVASCULAR: Regular rate and rhythm without murmurs, gallops, or rubs. RESPIRATORY: Breath sounds equal bilaterally. No accessory muscle use. GASTROINTESTINAL: Abdomen soft, non-tender, nondistended. MUSCULOSKELETAL: No cyanosis, or edema. BACK: Nontender without obvious deformity. No CVA tenderness. Laboratory Tests Test 04/05/18 05:17 04/05/18 06:07 04/05/18 06:17 Activated Partial Thromboplast Time 25.7 SEC B-Type Natriuretic Peptide 384 PG/ML White Blood Count 5.7 TH/MM3 Red Blood Count 3.47 MIL/MM3 Hemoglobin 10.8 GM/DL Hematocrit 31.4 % Mean Corpuscular Volume 90.6 FL Mean Corpuscular Hemoglobin 31.1 PG Mean Corpuscular Hemoglobin Concent 34.4 % Red Cell Distribution Width 14.1 % Platelet Count 170 TH/MM3 Mean Platelet Volume 6.2 FL Neutrophils (%) (Auto) 56.9 % Lymphocytes (%) (Auto) 30.0 % Monocytes (%) (Auto) 10.7 % Eosinophils (%) (Auto) 1.8 % Basophils (%) (Auto) 0.6 % Neutrophils # (Auto) 3.2 TH/MM3 Lymphocytes # (Auto) 1.7 TH/MM3 Monocytes # (Auto) 0.6 TH/MM3 Eosinophils # (Auto) 0.1 TH/MM3 Basophils # (Auto) 0.0 TH/MM3 CBC Comment DIFF FINAL Differential Comment Blood Urea Nitrogen 14 MG/DL Creatinine 0.75 MG/DL Random Glucose 90 MG/DL Total Protein 6.0 GM/DL Albumin 3.2 GM/DL Calcium Level 8.2 MG/DL Phosphorus Level 2.4 MG/DL Magnesium Level 2.1 MG/DL Alkaline Phosphatase 50 U/L Aspartate Amino Transf (AST/SGOT) 36 U/L Alanine Aminotransferase (ALT/SGPT) 46 U/L Total Bilirubin 0.5 MG/DL Sodium Level 143 MEQ/L Potassium Level 3.9 MEQ/L Chloride Level 113 MEQ/L Carbon Dioxide Level 22.3 MEQ/L Anion Gap 8 MEQ/L Estimat Glomerular Filtration Rate 78 ML/MIN Hemoglobin A1c 5.4 % Free Thyroxine 1.16 NG/DL Thyroid Stimulating Hormone 3rd Gen 5.220 uIU/ML Assessment and Plan Problem List: (1) Fatigue ICD Codes: R53.83 - Other fatigue (2) CAD (coronary artery disease) ICD Codes: I25.10 - Atherosclerotic heart disease of [place] coronary artery without angina pectoris (3) Hypothyroidism ICD Codes: E03.9 - Hypothyroidism, unspecified (4) Hypercholesterolemia ICD Codes: E78.00 - Pure hypercholesterolemia, unspecified Assessment and Plan 1.) CAD - rec aspirin 81 mg qd, continue pravachol 2.) Fatigue - possibly due to dehydration, feeling better after iv fluids Anival Ledbetter MD April 05, 2018 19:36
[2018-04-06] MEDS ORDERED: LEVOTHYROXINE SODIUM 125 MCG TAB PO SCH (06:00)
--- NOTE | 2018-04-07 09:43 | PQ ---
Physician Query Response Document PATIENT: SHAW SUÁREZ : 1955 ADMIT DATE: 04/03/2018 11:10 AM DISCH DATE: 04/05/2018 4:15 PM RESPONDING PROVIDER #: [email or web address] QUERY TEXT: Heart Failure Acuity and Type Congestive Heart Failure is documented in the Medical Record. Please document the type and acuity (in cludes probable or suspected) Such as: Type: -- Combined systolic and diastolic (heart failure with reduced ejection fraction and diastolic) dysfu nction -- Diastolic (HFpEF) -- Systolic (HFrEF) -- Left heart failure -- Right heart failure -- Right heart failure due to left heart failure -- High output failure -- End stage heart failure -- Other, please specify Acuity: -- Acute -- Chronic -- Acute on chronic -- Other, please specify Also please document the underlying cause of the CHF (includes probable or suspected) The patient's Clinical Indicators include: Consult: 4. Decompensated congestive heart failure. DISCUSSION: At this point in time, I agree with aspirin, IV heparin, Lopressor, nitro and lisinopril. I recommended left heart catheterization to the patient, which we will schedule tomorrow, 04/04/2018. The patient is currently chest pain free. Query created by: Amarilis Blackman on 04/06/2018 1:43 PM RESPONSE TEXT: Provider disagreed with this CDI query. does not have chf noted in chart? Electronically signed by: Compa Bryan 04/07/2018 9:39 AM
== END 2018-04-05 16:15 | disposition home or self-care (01) | DRG 287 ==
LOC: PHED 08:08 → PHEDA 11:10 → PHEDH 15:32 → HCIS 17:57
PROVIDERS: ADMIT Hospitalist; ATTEND Hospitalist
PROC: B2151ZZ Fluoroscopy of Left Heart using Low Osmolar Contrast (ICD-10-PCS; 2018-04-04)
PROC: B2111ZZ Fluoroscopy of Multiple Coronary Arteries using Low Osmolar Contrast (ICD-10-PCS; 2018-04-04)
PROC: 4A023N8 Measurement of Cardiac Sampling and Pressure, Bilateral, Percutaneous Approach (ICD-10-PCS; principal; 2018-04-04 13:45)
DX: I25.9 Chronic ischemic heart disease, unspecified (principal); I11.0 Hypertensive heart disease with heart failure; I50.9 Heart failure, unspecified; E03.9 Hypothyroidism, unspecified; E78.5 Hyperlipidemia, unspecified; E78.00 Pure hypercholesterolemia, unspecified; R73.9 Hyperglycemia, unspecified; R31.9 Hematuria, unspecified; I25.10 Atherosclerotic heart disease of native coronary artery without angina pectoris; F12.10 Cannabis abuse, uncomplicated; F41.9 Anxiety disorder, unspecified; Z79.82 Long term (current) use of aspirin; Z79.899 Other long term (current) drug therapy; Z87.891 Personal history of nicotine dependence
CPT/HCPCS: 71045; 80053; 80061; 81001; 82550; 82552; 82810; 83036; 83735; 83880; 84100; 84439; 84443; 84484; 85002; 85025; 85610; 85730; 93005; 93306; 93460; C1769; C1893; J1644; J2250; J3010; J7030; Q9967

== ENCOUNTER 2018-08-02 07:23 | Observation (INO) ==
[2018-08-02] MEDS ORDERED: Chlorhexidine Gluconate 2% 1 Pack (2 Cloths) TOPICAL ONE (07:52)
[2018-08-02] MEDS ORDERED: Metoprolol Tartrate 25 MG Tablet PO ONE (07:52)
[2018-08-02] MEDS ORDERED: Sodium Chlor 0.9% Inj 500 ML IV.SIG SCH (08:00)
[2018-08-02] MEDS ORDERED: Bupivacaine/Epinephrine 0.5% Inj 50 ML Vial ONE (09:29)
[2018-08-02] MEDS ORDERED: Lidocaine PF 1% Inj 5 ML Syringe OTHER ONE (10:45)
[2018-08-02] MEDS ORDERED: Glycopyrrolate Inj 1 MG/5 ML Syringe IV.PUSH ONE (10:45)
[2018-08-02] MEDS ORDERED: Neostigmine Inj 5 MG/5 ML Syringe IV.PUSH ONE (10:45)
[2018-08-02] MEDS ORDERED: fentaNYL Citrate Inj 100 MCG/2 ML Ampul ONE (12:42)
[2018-08-02] MEDS ORDERED: *Meperidine Inj 25 MG/ML Vial PERIprocedural Use ONLY ONE (13:23)
[2018-08-02] MEDS ORDERED: Naloxone Inj 0.4 MG/ML Vial IV.PUSH PRN (13:40)
[2018-08-02] MEDS ORDERED: Morphine Inj 4 MG/ML Vial IV.PUSH PRN (13:40)
[2018-08-02] MEDS ORDERED: Post-op Orders (for Pharmacy) OTHER ONE (13:40)
[2018-08-02] MEDS ORDERED: Bisacodyl 10 MG Supp RECTAL PRN (13:40)
[2018-08-02] MEDS: Sod Chloride 0.9% Inj 1,000 ML IV.CONT SCH (14:15)
[2018-08-02] MEDS: ceFAZolin Inj 1,000 MG in Sodium Chlor 0.9% Inj 100 ML IV.SIG SCH ×2 (14:20→22:50)
--- NOTE | 2018-08-02 14:30 | MP ---
cc: Oliverio Schreiber MD DATE OF OPERATION: 08/02/2018 PREOPERATIVE DIAGNOSES: Chronic calculous cholecystitis, right upper quadrant pain. POSTOPERATIVE DIAGNOSES: Chronic calculous cholecystitis, right upper quadrant pain, extensive intra-abdominal adhesions. OPERATIONS: Laparoscopic cholecystectomy, lysis of intra-abdominal adhesions. SURGEON: Oliverio Schreiber MD. ANESTHESIA: General. ESTIMATED BLOOD LOSS: 30 mL. DESCRIPTION OF PROCEDURE: The patient prepped and draped in usual fashion and a supraumbilical incision was made, deepened down to the fascia, which was opened. Under direct vision, Ashleigh cannula was placed. The abdomen insufflated with CO2. It is noted the patient has very extensive adhesions from previous abdominal surgeries which are preclusive of even visualizing the liver. Omentum is stuck to the anterior abdominal wall and several small bowel loops in the same fashion. The second port is now placed in the left upper quadrant. This is a 5 mm port and now a 30-degree camera inserted through this port visualizing the adhesions better. Using the supraumbilical port, these are taken down with the Endo Quinn and then the camera is switched to the subumbilical space, and then to the left upper quadrant the same is done. Once all the adhesions of bowel and liver are visualized, finally then the infrasternal and 2 right upper quadrant ports are placed. Gallbladder is grasped, elevated. The cystic duct and cystic artery are carefully dissected, triple ligated with Ligaclips, and divided. Gallbladder was taken out of liver bed using J-hook cautery. The gallbladder is now delivered through the subumbilical incision using Endo Catch bag. Meticulous hemostasis obtained. The abdomen visualized in all 4 quadrants very carefully. The small bowel was run to make sure there is no entry or injury to the same. When everything seemed satisfactory, instruments are withdrawn, incisions are closed with 0 Vicryl and 4-0 Monocryl. The patient tolerated the procedure well. Oliverio Schreiber MD SJ/ts , 01:53 PM , 02:00 PM
[2018-08-02] MEDS: Famotidine 20 MG Tablet PO SCH (22:51)
[2018-08-02] MEDS: Senna/Docusate Sodium 8.6/50 MG Tablet PO SCH (22:52)
[2018-08-03] MEDS: Sod Chloride 0.9% Inj 1,000 ML IV.CONT SCH (02:03)
[2018-08-03] MEDS ORDERED: Levothyroxine 75 MCG Tablet PO SCH (06:00)
[2018-08-03 07:02] LABS: Baso % (Auto) 0.4 % (0.0-2.0); Eos # (Auto) 0.1 th/mm3 (0.0-0.4); Hematocrit 36.3 % (35.0-46.0); Hemoglobin 12.5 gm/dL (11.6-15.3); Lymph # (Auto) 1.7 th/mm3 (1.0-4.8); Lymph % (Auto) 20.8 % (9.0-44.0); Mean Corpuscular HGB Conc 34.4 % (32.0-36.0); Mean Corpuscular Volume 84.5 fL (80.0-100.0); Mean Platelet Volume 6.8 fL (7.0-11.0); Mono # (Auto) 0.9 th/mm3 (0.0-0.9); Mono % (Auto) 10.8 % (0.0-8.0); Neut # (Auto) 5.3 th/mm3 (1.8-7.7); Platelet Count 155 th/mm3 (150-450); Red Blood Count 4.29 mil/mm3 (4.00-5.30); Red Cell Distribution Width 12.7 % (11.6-17.2); White Blood Count 7.9 th/mm3 (4.0-11.0)
[2018-08-03 07:31] LABS: Albumin 2.9 g/dL (3.4-5.0)
[2018-08-03 07:32] LABS: Total Protein 6.1 g/dL (6.4-8.2)
[2018-08-03 09:12] VITALS: RESP 17
[2018-08-03 16:14] VITALS: BP 102/56; PULSE 67; TEMP 98.1; O2SAT 92
[2018-08-03] MEDS: Senna/Docusate Sodium 8.6/50 MG Tablet PO SCH (16:18)
[2018-08-03] MEDS: Famotidine 20 MG Tablet PO SCH (16:18)
--- NOTE | 2018-08-03 17:58 | P.PNVS ---
Subjective Subjective/Hospital Course: St post lap chol;y. Incision clean dry GI normal DC patient today Objective Vital Signs / I&O: Vital Signs 08/02/18 20:00 08/03/18 00:00 08/03/18 02:00 Temperature 98.2 F 98.0 F 98.8 F Pulse Rate 75 67 71 Respiratory Rate 18 19 19 Blood Pressure 114/57 L 116/55 L 107/55 L Pulse Oximetry 96 97 92 L 08/03/18 08:00 08/03/18 12:00 08/03/18 16:00 Temperature 99.1 F 98.3 F 98.1 F Pulse Rate 74 60 67 Respiratory Rate 17 17 17 Blood Pressure 100/59 L 132/67 102/56 L Pulse Oximetry 93 L 95 92 L Intake & Output 08/02/18 08/03/18 08/03/18 18:59 06:59 18:59 Intake Total 1700 / 1700 3100 / 3100 1000 / 1000 Output Total 450 / 450 Balance 1250 / 1250 3100 / 3100 1000 / 1000 Weight 71.9 kg 74.5 kg Intake: IV 1100 / 1100 1100 / 1100 1000 / 1000 NS Inj 1,000 ML @ 100 mls/hr IV 1000 / 1000 1000 / 1000 .CONT .Q10H CAROL Rx#:[id number] LR 1000 mL Inj 1,000 ML @ 30 1000 / 1000 mls/hr IV.SIG .Q24H CAROL Rx#: [id number] Ancef Inj 1,000 MG In NS Inj 100 / 100 100 / 100 100 ML @ 200 mls/hr IV.SIG Q8H CAROL Rx#:[id number] Oral 2000 / 2000 Anesthesia Amount 600 / 600 Output: Estimated Blood Loss 50 / 50 Urine Amount (Catheter) 400 / 400 Indwelling Urethral Catheter 400 / 400 Other: # Voids 2 Weight On Admission 71.9 kg Laboratory Results - last 24 hr 08/03/18 08/03/18 05:33 06:33 WBC 7.9 RBC 4.29 Hgb 12.5 Hct 36.3 MCV 84.5 MCH 29.0 MCHC 34.4 RDW 12.7 Plt Count 155 D MPV 6.8 L Neut % (Auto) 67.0 Lymph % (Auto) 20.8 [place] % (Auto) 10.8 H Eos % (Auto) 1.0 Baso % (Auto) 0.4 Neut # (Auto) 5.3 Lymph # (Auto) 1.7 [place] # (Auto) 0.9 Eos # (Auto) 0.1 Baso # (Auto) 0.0 WBC Differential . Differential Comment Auto diff final Total Bilirubin 0.4 Direct Bilirubin 0.1 Indirect Bilirubin 0.3 AST 44 H ALT 58 H Alkaline Phosphatase 65 Total Protein 6.1 L Albumin 2.9 L
== END 2018-08-03 18:49 | disposition home or self-care (01) ==
LOC: HSDC 07:23 → HSDI 07:23 → N07 15:56
PROVIDERS: ADMIT Surgery; ATTEND Surgery